=== PATIENT | male | born 1985 | race Caucasian/White ===

== ENCOUNTER 2020-06-04 17:48 | Inpatient (IN) | payer MEDICAID ==
[~2020-06-04] VITALS: Ht 190.5 cm; Wt 88.0 kg
--- NOTE | 2020-06-04 18:19 | NUR ---
PTS DAD STATES PT HAS GASTROPARESIS FOR 18 MONTHS. HAS BEEN TO [facility] MANY TIMES LATELY. WAS SENT HOME FROM [facility] LAST NIGHT. PT HAS N/V. PT STATES HAVING PAIN EVERYWHERE.
[2020-06-04] MEDS ORDERED: HYDROmorphone 1 MG/ML, 1ML INJ IV ONE (18:30)
[2020-06-04] MEDS ORDERED: SODIUM CHLORIDE 0.9% 1,000ML IVBOLUS ONE ×2 (18:30→21:00)
[2020-06-04] MEDS ORDERED: ONDANSETRON 2MG/ML, 2ML IVPush ONE (18:30)
[2020-06-04] MEDS ORDERED: HYDROmorphone 1 MG/ML, 1ML INJ ONE (18:46)
[2020-06-04] MEDS ORDERED: ONDANSETRON 2MG/ML, 2ML ONE (18:46)
[2020-06-04 18:48] LABS: MEAN CORPUSCULAR HEMOGLOBIN 26.3 pg (27.5-34.5); MEAN CORPUSCULAR HGB CONC 32.4 g/dL (33.2-36.2); MEAN PLATELET VOLUME 8.9 fL (7.4-10.4); PLATELET COUNT 555 x10^3/uL (130-400); RED BLOOD COUNT 4.85 x10^6/uL (4.38-5.82); RED CELL DISTRIBUTION WIDTH 15.9 % (9.4-14.8)
[2020-06-04 19:00] LABS: ALANINE AMINOTRANSFERASE 23 U/L (12-78); ANION GAP 17 mmol/L (5-15); CALCIUM 8.4 mg/dL (8.5-10.1); CHLORIDE 101 mmol/L (98-107)
[2020-06-04 19:03] LABS: ALKALINE PHOSPHATASE 122 U/L (45-117); BILIRUBIN,TOTAL 0.5 mg/dL (0.2-1.0); TOTAL PROTEIN 6.3 g/dL (6.4-8.2)
[2020-06-04 19:15] LABS: MD YES
[2020-06-04 19:20] LABS: BAND#(MANUAL) 0.14 x10^3/uL; BANDS%(MANUAL) 1 % (0-7); LYMPH#(MANUAL) 2.43 x10^3/uL (1-3.4); LYMPHS% (MANUAL) 18 % (22-44); METAMYELOCYTES# (MANUAL) 0.14 x10^3/uL (0-0); METAMYELOCYTES% (MANUAL) 1 % (0-1); MONOS#(MANUAL) 0.41 x10^3/uL (0.3-2.7); MONOS% (MANUAL) 3 % (2-9); MYELOCYTES# (MANUAL) 0.14 x10^3/uL (0-0); MYELOCYTES% (MANUAL) 1 % (0-0); SEG#(MANUAL) 10.26 x10^3/uL (1.8-6.8); SEGS% (MANUAL) 76 % (42-75)
[2020-06-04 19:25] LABS: ANISOCYTOSIS 1+
[2020-06-04 19:26] LABS: OVALOCYTES 1+
[2020-06-04 19:27] LABS: <PLATELET ESTIMATE> INCREASED
[2020-06-04] MEDS ORDERED: OMNIPAQUE 350 MG/ML, 100ML BOTTLE ONE (19:47)
--- NOTE | 2020-06-04 20:07 | NUR ---
PT OFF UNIT IN IMAGING
--- NOTE | 2020-06-04 20:25 | NUR ---
PT BACK FROM IMAGING, RECONNECTED TO MONITORS. LYING IN BED.
[2020-06-04] MEDS ORDERED: METOCLOPRAMIDE 5 MG/ML, 2ML IVPush ONE (21:00)
[2020-06-04] MEDS ORDERED: METOCLOPRAMIDE 5 MG/ML, 2ML ONE (21:11)
[2020-06-04] MEDS ORDERED: ONDA4TAB7 PO (21:30)
[2020-06-04] MEDS ORDERED: INSU100V11 SC (21:32)
--- NOTE | 2020-06-04 21:32 | NUR ---
GAVE REPORT TO KOMAL STONER
[2020-06-04] MEDS ORDERED: INSULIN GLARGINE 100 UNITS/ML, PEN SQ-INSULIN SCH (22:00)
[2020-06-04] MEDS ORDERED: GABAPENTIN 300 MG CAPSULE PO PRN (22:00)
[2020-06-04] MEDS ORDERED: hydrALAzine 20 MG/ML, 1ML IVPush PRN (22:00)
[2020-06-04] MEDS ORDERED: METOCLOPRAMIDE 5 MG/ML, 2ML IVPush PRN (22:00)
[2020-06-04] MEDS ORDERED: LACTATED RINGERS 1,000 ML IV SCH (22:00)
[2020-06-04] MEDS ORDERED: MELATONIN 5 MG TABLET PO PRN (22:00)
[2020-06-04] MEDS: morphine SULFATE 10 MG/ML, 1ML IVPush PRN (23:53)
[2020-06-05] MEDS: morphine SULFATE 10 MG/ML, 1ML IVPush PRN ×5 (00:13→23:42)
[2020-06-05 00:49] VITALS: BP 123/76
[2020-06-05] MEDS: ONDANSETRON 2MG/ML, 2ML IVPush PRN ×3 (02:29→19:55)
[2020-06-05 04:46] LABS: BASOPHILS % (AUTO) 0 % (0-1); EOSINOPHILS % (AUTO) 0 % (1-7); LYMPHOCYTES % (AUTO) 9 % (22-44); MEAN CORPUSCULAR HEMOGLOBIN 27.3 pg (27.5-34.5); MEAN CORPUSCULAR HGB CONC 32.8 g/dL (33.2-36.2); MEAN PLATELET VOLUME 9.4 fL (7.4-10.4); MONOCYTES % (AUTO) 5 % (2-9); NEUTROPHILS % (AUTO) 86 % (42-75); PLATELET COUNT 407 x10^3/uL (130-400); RED BLOOD COUNT 3.82 x10^6/uL (4.38-5.82)
[2020-06-05 04:49] LABS: MD NO
[2020-06-05 04:56] LABS: ANION GAP 25 mmol/L (5-15); CALCIUM 7.8 mg/dL (8.5-10.1); CHLORIDE 100 mmol/L (98-107)
[2020-06-05 04:58] LABS: CREATININE 1.39 mg/dL (0.7-1.3)
[2020-06-05 06:39] VITALS: BP 90/41
[2020-06-05] MEDS ORDERED: INSULIN LISPRO 100 UNITS/ML, PEN SQ-INSULIN SCH (07:00)
[2020-06-05] MEDS ORDERED: ENALAPRILAT 1.25 MG/ML, 2ML IVPush PRN (07:00)
[2020-06-05] MEDS ORDERED: LABETALOL 5MG/ML, 20ML IVPush PRN (07:00)
[2020-06-05] MEDS: SODIUM CHLORIDE 0.9% 1,000 ML IV SCH ×4 (07:04→22:42)
[2020-06-05] MEDS: REGULAR INSULIN 100 UNITS in SODIUM CHLORIDE 0.9% 99 ML IV PRN ×2 (07:06→14:48)
[2020-06-05] MEDS: D5%-0.45NACL+KCL 20MEQ 1,000 ML IV SCH ×3 (08:59→21:10)
[2020-06-05] MEDS: ENOXAPARIN 40 MG/0.4 ML SQ SCH (09:01)
[2020-06-05] MEDS: PANTOPRAZOLE 40MG TABLET PO SCH (09:02)
[2020-06-05] MEDS ORDERED: MORPHINE SULFATE 4 MG/ML, 1ML ONE (12:11)
[2020-06-05 12:53] LABS: MICROSCOPIC AUTO
[2020-06-05 12:58] LABS: ANION GAP 20 mmol/L (5-15); CALCIUM 7.7 mg/dL (8.5-10.1); CHLORIDE 106 mmol/L (98-107); CREATININE 1.86 mg/dL (0.7-1.3)
[2020-06-05 14:08] LABS: AMPHETAMINE SCREEN, URINE Negative (Negative); BARBITURATE SCREEN, URINE Negative (Negative); BENZODIAZEPINE SCREEN, URINE Negative (Negative); CANNABINOID SCREEN, URINE Negative (Negative); COCAINE SCREEN, URINE Negative (Negative); METHADONE SCREEN, URINE Negative (Negative); OPIATE SCREEN, URINE Positive (Negative)
[2020-06-05] MEDS ORDERED: POTASSIUM PHOSPHATE 44 MEQ in SODIUM CHLORIDE 0.9% 500 ML IV ONE (14:30)
[2020-06-05 16:32] LABS: ANION GAP 13 mmol/L (5-15); CALCIUM 7.2 mg/dL (8.5-10.1); CHLORIDE 104 mmol/L (98-107); CREATININE 1.55 mg/dL (0.7-1.3)
[2020-06-05 21:00] LABS: ANION GAP 17 mmol/L (5-15); CALCIUM 7.1 mg/dL (8.5-10.1); CHLORIDE 104 mmol/L (98-107); CREATININE 1.47 mg/dL (0.7-1.3)
[2020-06-06 00:35] LABS: ANION GAP 10 mmol/L (5-15); CALCIUM 7.1 mg/dL (8.5-10.1); CHLORIDE 105 mmol/L (98-107); CREATININE 1.35 mg/dL (0.7-1.3)
[2020-06-06] MEDS ORDERED: POTASSIUM CHLORIDE 20 MEQ in SODIUM CHLORIDE 0.9% 250 ML IV ONE (01:00)
[2020-06-06] MEDS: SODIUM CHLORIDE 0.9% 1,000 ML IV SCH ×3 (03:44→22:46)
[2020-06-06 04:30] LABS: BASOPHILS % (AUTO) 1 % (0-1); EOSINOPHILS % (AUTO) 1 % (1-7); LYMPHOCYTES % (AUTO) 37 % (22-44); MEAN CORPUSCULAR HEMOGLOBIN 27.2 pg (27.5-34.5); MEAN CORPUSCULAR HGB CONC 33.5 g/dL (33.2-36.2); MEAN PLATELET VOLUME 8.9 fL (7.4-10.4); MONOCYTES % (AUTO) 6 % (2-9); NEUTROPHILS % (AUTO) 56 % (42-75); PLATELET COUNT 340 x10^3/uL (130-400); RED BLOOD COUNT 3.55 x10^6/uL (4.38-5.82); RED CELL DISTRIBUTION WIDTH 16.1 % (9.4-14.8)
[2020-06-06 04:31] LABS: MD NO
[2020-06-06 04:32] LABS: ANION GAP 6 mmol/L (5-15); CALCIUM 7.2 mg/dL (8.5-10.1); CHLORIDE 106 mmol/L (98-107); CREATININE 1.36 mg/dL (0.7-1.3)
[2020-06-06] MEDS: D5%-0.45NACL+KCL 20MEQ 1,000 ML IV SCH (04:56)
[2020-06-06] MEDS: INSULIN LISPRO 100 UNITS/ML, PEN SQ-INSULIN SCH ×4 (06:36→20:48)
[2020-06-06] MEDS: PANTOPRAZOLE 40MG TABLET PO SCH (07:51)
[2020-06-06 07:54] LABS: ANION GAP 9 mmol/L (5-15); CALCIUM 7.7 mg/dL (8.5-10.1); CHLORIDE 104 mmol/L (98-107); CREATININE 1.29 mg/dL (0.7-1.3)
[2020-06-06] MEDS: INSULIN GLARGINE 100 UNITS/ML, PEN SQ-INSULIN SCH ×2 (08:46→20:47)
[2020-06-06] MEDS: ENOXAPARIN 40 MG/0.4 ML SQ SCH (08:47)
[2020-06-06] MEDS: ONDANSETRON 2MG/ML, 2ML IVPush PRN ×2 (11:04→22:44)
[2020-06-06 12:18] VITALS: BP 123/77
[2020-06-06 19:31] VITALS: BP 143/90
[2020-06-06 22:10] LABS: OCCULT BLOOD POSITIVE (NEGATIVE)
[2020-06-07 01:31] VITALS: BP 147/68
[2020-06-07] MEDS: ONDANSETRON 2MG/ML, 2ML IVPush PRN ×3 (04:17→21:36)
[2020-06-07 05:20] LABS: BASOPHILS % (AUTO) 1 % (0-1); EOSINOPHILS % (AUTO) 2 % (1-7); LYMPHOCYTES % (AUTO) 39 % (22-44); MEAN CORPUSCULAR HGB CONC 32.8 g/dL (33.2-36.2); MEAN PLATELET VOLUME 8.9 fL (7.4-10.4); MONOCYTES % (AUTO) 7 % (2-9); NEUTROPHILS % (AUTO) 50 % (42-75); PLATELET COUNT 341 x10^3/uL (130-400); RED BLOOD COUNT 3.74 x10^6/uL (4.38-5.82); RED CELL DISTRIBUTION WIDTH 16.4 % (9.4-14.8)
[2020-06-07 05:25] LABS: MD NO
[2020-06-07 05:38] LABS: CHLORIDE 104 mmol/L (98-107)
[2020-06-07 05:42] LABS: ANION GAP 10 mmol/L (5-15); CALCIUM 7.7 mg/dL (8.5-10.1); CREATININE 1.09 mg/dL (0.7-1.3)
[2020-06-07 06:59] VITALS: BP 144/98
[2020-06-07 07:05] VITALS: BP 135/88
[2020-06-07] MEDS: INSULIN LISPRO 100 UNITS/ML, PEN SQ-INSULIN SCH ×4 (07:30→21:00)
[2020-06-07] MEDS: PANTOPRAZOLE 40MG TABLET PO SCH (07:30)
[2020-06-07] MEDS: INSULIN GLARGINE 100 UNITS/ML, PEN SQ-INSULIN SCH ×2 (09:34→21:37)
[2020-06-07] MEDS: ENOXAPARIN 40 MG/0.4 ML SQ SCH (09:34)
[2020-06-07] MEDS: ACETAMINOPHEN 325 MG TABLET PO PRN (11:49)
[2020-06-07] MEDS: METOCLOPRAMIDE 5 MG/ML, 2ML IVPush SCH (17:42)
[2020-06-07 20:23] VITALS: BP 154/89
[2020-06-08] MEDS: METOCLOPRAMIDE 5 MG/ML, 2ML IVPush SCH ×4 (00:15→17:01)
[2020-06-08 00:29] VITALS: BP 151/107
[2020-06-08] MEDS ORDERED: MELATONIN 5 MG TABLET PO PRN (00:30)
[2020-06-08] MEDS: ACETAMINOPHEN 325 MG TABLET PO PRN ×2 (04:09→11:34)
[2020-06-08 05:04] LABS: BASOPHILS % (AUTO) 1 % (0-1); EOSINOPHILS % (AUTO) 2 % (1-7); LYMPHOCYTES % (AUTO) 38 % (22-44); MEAN CORPUSCULAR HEMOGLOBIN 26.8 pg (27.5-34.5); MEAN CORPUSCULAR HGB CONC 32.8 g/dL (33.2-36.2); MEAN PLATELET VOLUME 8.5 fL (7.4-10.4); MONOCYTES % (AUTO) 7 % (2-9); NEUTROPHILS % (AUTO) 52 % (42-75); PLATELET COUNT 304 x10^3/uL (130-400); RED BLOOD COUNT 3.64 x10^6/uL (4.38-5.82); RED CELL DISTRIBUTION WIDTH 16.4 % (9.4-14.8)
[2020-06-08 05:05] LABS: MD NO
[2020-06-08 05:18] LABS: ALBUMIN 2.2 g/dL (3.4-5.0); ANION GAP 7 mmol/L (5-15); CALCIUM 7.8 mg/dL (8.5-10.1); CHLORIDE 102 mmol/L (98-107)
[2020-06-08 05:21] LABS: ALANINE AMINOTRANSFERASE 13 U/L (12-78); ALKALINE PHOSPHATASE 86 U/L (45-117); BILIRUBIN,TOTAL 0.2 mg/dL (0.2-1.0); CREATININE 0.91 mg/dL (0.7-1.3); TOTAL PROTEIN 4.6 g/dL (6.4-8.2)
[2020-06-08] MEDS ORDERED: MAGNESIUM SULFATE PMX 2GM/50ML 50 ML IV ONE (07:00)
[2020-06-08] MEDS: INSULIN LISPRO 100 UNITS/ML, PEN SQ-INSULIN SCH ×3 (07:38→16:00)
[2020-06-08] MEDS: PANTOPRAZOLE 40MG TABLET PO SCH (07:38)
[2020-06-08 08:45] VITALS: BP 148/97
[2020-06-08] MEDS: ENOXAPARIN 40 MG/0.4 ML SQ SCH (09:18)
[2020-06-08] MEDS: INSULIN GLARGINE 100 UNITS/ML, PEN SQ-INSULIN SCH (09:19)
[2020-06-08] MEDS ORDERED: METO10TA82 PO (16:45)
[2020-06-08] MEDS ORDERED: INSU100I13 SQ-INSULIN (16:45)
== END 2020-06-08 17:50 | disposition home or self-care (01) | DRG 637 ==
LOC: ED 22:00 → 3N 23:37 → CCU 06-05 06:44 → 4NE 06-06 10:31
PROVIDERS: ADMIT Family Medicine; ATTEND Internal Medicine
DX: E10.10 Type 1 diabetes mellitus with ketoacidosis without coma (principal); G93.41 Metabolic encephalopathy; N17.0 Acute kidney failure with tubular necrosis; D64.9 Anemia, unspecified; D72.828 Other elevated white blood cell count; E10.43 Type 1 diabetes mellitus with diabetic autonomic (poly)neuropathy; E83.39 Other disorders of phosphorus metabolism; E86.0 Dehydration; G89.29 Other chronic pain; K21.9 Gastro-esophageal reflux disease without esophagitis; K31.84 Gastroparesis; R00.0 Tachycardia, unspecified; E83.42 Hypomagnesemia
CPT/HCPCS: 36415; 74177; 78264; 80048; 80053; 80307; 81001; 82272; 82962; 83036; 83605; 83690; 83735; 84100; 85025; 87081; 96361; 96374; 96375; 99285; G0378; J1170; J1650; J1815; J2405; J3480; Q9967; A9541; J2270; J2765; J3475; J7030; J7040; J7050; J7120

== ENCOUNTER 2020-07-01 02:41 | Inpatient (IN) | payer MEDICAID ==
[~2020-07-01] VITALS: Ht 190.5 cm; Wt 81.7 kg
[~2020-07-01 02:41] MED LIST: INSU100I13 SQ-INSULIN; INSU100V11 SC; METO10TA82 PO; ONDA4TAB7 PO
--- NOTE | 2020-07-01 02:52 | NUR ---
PT BLOOD SUGAR ON ARRIVAL "HIGH" WITH HOSPITAL GLUCOMETER.
[2020-07-01] MEDS ORDERED: ONDANSETRON 2MG/ML, 2ML ONE (02:57)
[2020-07-01] MEDS ORDERED: SODIUM CHLORIDE 0.9% 1,000ML IVBOLUS ONE (03:00)
[2020-07-01] MEDS ORDERED: ONDANSETRON 2MG/ML, 2ML IVPush ONE (03:00)
--- NOTE | 2020-07-01 03:06 | NUR ---
PT MEDICATED FOR N/V, FRIEND AT BEDSIDE AT THIS TIME. IV'S STARTED, LABS DRAWN AND IV FLUIDS INFUSING. AWAITING LAB RESULTS.
[2020-07-01 03:10] LABS: BASOPHILS % (AUTO) 1 % (0-1); EOSINOPHILS % (AUTO) 0 % (1-7); LYMPHOCYTES % (AUTO) 14 % (22-44); MEAN CORPUSCULAR HEMOGLOBIN 27.1 pg (27.5-34.5); MEAN PLATELET VOLUME 9.2 fL (7.4-10.4); MONOCYTES % (AUTO) 3 % (2-9); NEUTROPHILS % (AUTO) 82 % (42-75); PLATELET COUNT 518 x10^3/uL (130-400); RED CELL DISTRIBUTION WIDTH 16.6 % (9.4-14.8)
[2020-07-01 03:13] LABS: MD NO
[2020-07-01 03:14] LABS: ALBUMIN 3.2 g/dL (3.4-5.0); ANION GAP 27 mmol/L (5-15); CALCIUM 9.6 mg/dL (8.5-10.1); CHLORIDE 89 mmol/L (98-107)
[2020-07-01 03:16] LABS: ALANINE AMINOTRANSFERASE 35 U/L (12-78); BILIRUBIN,TOTAL 0.8 mg/dL (0.2-1.0); CREATININE 1.81 mg/dL (0.7-1.3)
[2020-07-01 03:20] LABS: ALKALINE PHOSPHATASE 165 U/L (45-117); TOTAL PROTEIN 7.1 g/dL (6.4-8.2); TROPONIN I < 0.015 ng/mL (0.000-0.045)
[2020-07-01] MEDS ORDERED: SODIUM CHLORIDE 0.9% 1,000 ML IV ONE (04:00)
[2020-07-01] MEDS ORDERED: REGULAR INSULIN 100 UNITS in SODIUM CHLORIDE 0.9% 99 ML IV PRN (04:00)
[2020-07-01] MEDS ORDERED: METOCLOPRAMIDE 5 MG/ML, 2ML ONE (04:00)
[2020-07-01] MEDS ORDERED: SODIUM CHLORIDE 0.9% 1,000 ML IV SCH (04:00)
[2020-07-01] MEDS ORDERED: PROMETHAZINE 25 MG/ML, 1ML IM PRN (04:00)
[2020-07-01] MEDS ORDERED: LACTATED RINGERS 1,000 ML IVBOLUS ONE (04:00)
[2020-07-01] MEDS ORDERED: METOCLOPRAMIDE 5 MG/ML, 2ML IVPush ONE (04:00)
[2020-07-01] MEDS ORDERED: ONDANSETRON ODT 4 MG PO PRN (04:00)
--- NOTE | 2020-07-01 04:29 | NUR ---
HOSPITALIST AT BEDSIDE FOR ADMIT EVAL.
[2020-07-01 04:31] LABS: ACETONE, SERUM Large (80mg/dL) (Negative)
--- NOTE | 2020-07-01 04:53 | NUR ---
1L NS, 2L LR infused. Blood Glucose reading "HIGH" on hospital glucometer. Pt A&O to self and date at this time.
[2020-07-01 05:24] LABS: MICROSCOPIC INDICATED
[2020-07-01 05:42] LABS: AMPHETAMINE SCREEN, URINE Negative (Negative); BARBITURATE SCREEN, URINE Negative (Negative); BENZODIAZEPINE SCREEN, URINE Negative (Negative); CANNABINOID SCREEN, URINE Negative (Negative); COCAINE SCREEN, URINE Negative (Negative); METHADONE SCREEN, URINE Negative (Negative); OPIATE SCREEN, URINE Negative (Negative)
[2020-07-01 05:49] LABS: ANION GAP 26 mmol/L (5-15); CALCIUM 8.6 mg/dL (8.5-10.1); CHLORIDE 96 mmol/L (98-107); CREATININE 1.84 mg/dL (0.7-1.3)
[2020-07-01] MEDS: HEPARIN 5,000 UNITS/ML, 1ML SQ SCH ×3 (05:54→21:07)
[2020-07-01] MEDS: D5%-0.45NACL+KCL 20MEQ 1,000 ML IV SCH ×2 (08:00→10:18)
[2020-07-01] MEDS: ONDANSETRON 2MG/ML, 2ML IVPush PRN ×2 (08:54→15:07)
[2020-07-01] MEDS: METOCLOPRAMIDE 5 MG/ML, 2ML IVPush SCH ×3 (09:26→21:08)
[2020-07-01] MEDS: FAMOTIDINE 20 MG/2 ML IVPush SCH ×2 (09:26→21:07)
[2020-07-01] MEDS: ACETAMINOPHEN 325 MG TABLET PO PRN ×2 (09:41→15:12)
[2020-07-01 10:26] LABS: ANION GAP 10 mmol/L (5-15); CALCIUM 8.6 mg/dL (8.5-10.1); CHLORIDE 104 mmol/L (98-107); CREATININE 1.61 mg/dL (0.7-1.3)
[2020-07-01] MEDS: INSULIN LISPRO 100 UNITS/ML, PEN SQ-INSULIN SCH ×3 (11:00→21:17)
[2020-07-01] MEDS: POTASSIUM CHLORIDE 20 MEQ in LACTATED RINGERS 1,000 ML IV SCH ×2 (11:38→22:11)
[2020-07-01] MEDS: INSULIN GLARGINE 100 UNITS/ML, PEN SQ-INSULIN SCH ×2 (11:39→21:19)
[2020-07-01 15:36] LABS: ANION GAP 14 mmol/L (5-15); CALCIUM 8.4 mg/dL (8.5-10.1); CHLORIDE 97 mmol/L (98-107); CREATININE 1.35 mg/dL (0.7-1.3)
[2020-07-01] MEDS ORDERED: PANTOPRAZOLE 40 MG IV IVPush SCH (16:30)
[2020-07-01] MEDS: morphine SULFATE 10 MG/ML, 1ML IVPush PRN ×2 (16:41→22:12)
[2020-07-02] MEDS: HEPARIN 5,000 UNITS/ML, 1ML SQ SCH ×3 (03:43→20:58)
[2020-07-02] MEDS: METOCLOPRAMIDE 5 MG/ML, 2ML IVPush SCH ×4 (03:43→20:57)
[2020-07-02 04:40] LABS: BASOPHILS % (AUTO) 1 % (0-1); EOSINOPHILS % (AUTO) 2 % (1-7); LYMPHOCYTES % (AUTO) 39 % (22-44); MEAN CORPUSCULAR HEMOGLOBIN 26.9 pg (27.5-34.5); MEAN CORPUSCULAR HGB CONC 33.3 g/dL (33.2-36.2); MEAN PLATELET VOLUME 8.2 fL (7.4-10.4); MONOCYTES % (AUTO) 7 % (2-9); NEUTROPHILS % (AUTO) 52 % (42-75); PLATELET COUNT 479 x10^3/uL (130-400); RED BLOOD COUNT 4.03 x10^6/uL (4.38-5.82); RED CELL DISTRIBUTION WIDTH 15.9 % (9.4-14.8)
[2020-07-02 04:41] LABS: MD NO
[2020-07-02 04:49] LABS: ANION GAP 12 mmol/L (5-15); CALCIUM 8.6 mg/dL (8.5-10.1); CHLORIDE 98 mmol/L (98-107); CREATININE 1.18 mg/dL (0.7-1.3)
[2020-07-02] MEDS ORDERED: POTASSIUM CHLORIDE 20 MEQ TAB.ER.PRT PO ONE (06:30)
[2020-07-02] MEDS: INSULIN LISPRO 100 UNITS/ML, PEN SQ-INSULIN SCH ×5 (07:00→21:00)
[2020-07-02] MEDS: INSULIN GLARGINE 100 UNITS/ML, PEN SQ-INSULIN SCH (08:46)
[2020-07-02] MEDS ORDERED: OMNIPAQUE 350 MG/ML, 100ML BOTTLE ONE (09:44)
[2020-07-02] MEDS: PANTOPRAZOLE 40MG TABLET PO SCH (10:00)
[2020-07-02] MEDS: ACETAMINOPHEN 325 MG TABLET PO PRN (13:25)
[2020-07-02 15:08] VITALS: BP 136/87
[2020-07-02 19:42] VITALS: BP 129/82
[2020-07-02] MEDS ORDERED: INSULIN GLARGINE 100 UNITS/ML, PEN SQ-INSULIN SCH (21:00)
[2020-07-03 02:15] VITALS: BP 112/78
[2020-07-03] MEDS ORDERED: INSULIN LISPRO 100 UNITS/ML, PEN SQ-INSULIN ONE (02:30)
[2020-07-03] MEDS: HEPARIN 5,000 UNITS/ML, 1ML SQ SCH ×2 (05:10→12:55)
[2020-07-03] MEDS: PANTOPRAZOLE 40MG TABLET PO SCH (05:10)
[2020-07-03] MEDS: METOCLOPRAMIDE 5 MG/ML, 2ML IVPush SCH (05:10)
[2020-07-03 06:17] LABS: BASOPHILS % (AUTO) 1 % (0-1); EOSINOPHILS % (AUTO) 3 % (1-7); LYMPHOCYTES % (AUTO) 46 % (22-44); MEAN CORPUSCULAR HGB CONC 32.9 g/dL (33.2-36.2); MEAN PLATELET VOLUME 8.7 fL (7.4-10.4); MONOCYTES % (AUTO) 9 % (2-9); NEUTROPHILS % (AUTO) 41 % (42-75); PLATELET COUNT 389 x10^3/uL (130-400); RED BLOOD COUNT 3.65 x10^6/uL (4.38-5.82); RED CELL DISTRIBUTION WIDTH 16.3 % (9.4-14.8)
[2020-07-03 06:19] LABS: ANION GAP 8 mmol/L (5-15); CALCIUM 8.3 mg/dL (8.5-10.1); CHLORIDE 103 mmol/L (98-107)
[2020-07-03 06:21] LABS: CREATININE 1.25 mg/dL (0.7-1.3)
[2020-07-03 06:42] VITALS: BP 149/101
[2020-07-03 06:53] LABS: MD SCAN
[2020-07-03] MEDS: INSULIN LISPRO 100 UNITS/ML, PEN SQ-INSULIN SCH ×3 (08:30→12:56)
[2020-07-03] MEDS: METOCLOPRAMIDE 10MG TABLET PO SCH ×2 (08:32→12:55)
[2020-07-03] MEDS ORDERED: INSULIN GLARGINE 100 UNITS/ML, PEN SQ-INSULIN SCH ×2 (09:00)
[2020-07-03] MEDS ORDERED: IRON SUCROSE COMPLEX 100MG/5ML IV SCH (09:00)
[2020-07-03] MEDS ORDERED: INSULIN LISPRO 100 UNITS/ML, PEN SQ-INSULIN SCH (11:00)
[2020-07-03] MEDS ORDERED: ONDA4TAB7 PO (12:08)
[2020-07-03] MEDS ORDERED: INSU100I11 SQ-INSULIN (12:08)
[2020-07-03 12:17] VITALS: BP_SYST 144; BP_SYST 97; BP_DIAS 56; BP_DIAS 99
== END 2020-07-03 14:40 | disposition home or self-care (01) | DRG 637 ==
LOC: ED 03:11 → EDIP 04:00 → CCU 05:40 → 4WST 07-02 09:45 → DCLOUNGE 07-03 14:33
PROVIDERS: ATTEND Hospitalist
DX: E10.10 Type 1 diabetes mellitus with ketoacidosis without coma (principal); G93.41 Metabolic encephalopathy; E87.1 Hypo-osmolality and hyponatremia; N17.9 Acute kidney failure, unspecified; D50.9 Iron deficiency anemia, unspecified; E10.43 Type 1 diabetes mellitus with diabetic autonomic (poly)neuropathy; E86.0 Dehydration; E87.5 Hyperkalemia; K31.84 Gastroparesis; K40.90 Unilateral inguinal hernia, without obstruction or gangrene, not specified as recurrent; R00.0 Tachycardia, unspecified; Z79.4 Long term (current) use of insulin
CPT/HCPCS: 71045; 74177; 76705; 80048; 80053; 80307; 81001; 82010; 82607; 82728; 82803; 82962; 83036; 83540; 83550; 83605; 83690; 83735; 84100; 84145; 84484; 85025; 87081; 93005; 96361; 96374; 96375; G0378; J1644; J1756; J1815; J2405; J2550; J3480; Q9967; C9113; J2270; J2765; J7030; J7120; Q0181

== ENCOUNTER 2020-08-02 15:27 | Inpatient (IN) | payer MEDICAID ==
[~2020-08-02] VITALS: Ht 190.5 cm; Wt 87.2 kg
[~2020-08-02 15:27] MED LIST changes: +INSU100I11 SQ-INSULIN
[2020-08-02 16:26] LABS: PH, VENOUS 7.453 pH (7.320-7.420)
[2020-08-02 16:38] LABS: ALANINE AMINOTRANSFERASE 30 U/L (12-78); ALBUMIN 3.3 g/dL (3.4-5.0); ANION GAP 9 mmol/L (5-15); CHLORIDE 101 mmol/L (98-107); CREATININE 1.36 mg/dL (0.7-1.3)
[2020-08-02 16:45] LABS: BASOPHILS % (AUTO) 1 % (0-1); EOSINOPHILS % (AUTO) 1 % (1-7); LYMPHOCYTES % (AUTO) 11 % (22-44); MEAN CORPUSCULAR HGB CONC 33.1 g/dL (33.2-36.2); MEAN PLATELET VOLUME 9.2 fL (7.4-10.4); MONOCYTES % (AUTO) 5 % (2-9); NEUTROPHILS % (AUTO) 83 % (42-75); PLATELET COUNT 401 x10^3/uL (130-400); RED BLOOD COUNT 4.63 x10^6/uL (4.38-5.82); RED CELL DISTRIBUTION WIDTH 15.4 % (9.4-14.8)
[2020-08-02 16:46] LABS: ALKALINE PHOSPHATASE 158 U/L (45-117); BILIRUBIN,TOTAL 0.7 mg/dL (0.2-1.0); MD NO
[2020-08-02 16:50] LABS: ACETONE, SERUM Small (20mg/dL) (Negative)
--- NOTE | 2020-08-02 17:38 | NUR ---
PT TO RM FROM LOBBY
--- NOTE | 2020-08-02 18:27 | NUR ---
PT C/O OR RIGHT FOOT PAIN. FOOT NOTED TO HAVE DIME SIZE ULCER ON BALL OF FOOT. NO SWELLING NOTED. CMS NOTED ON RIGHT FOOT. PT APPEARS TO BE SOMNOLENT, AWAKES TO VERBAL STIMULUS. A&OX4. ATTACHED TO CARD/SP02/BP MONITORS. VSS WITH SLIGHTLY ELEVATED HR. BED IN LOW POSITION. CALL LIGHT WITHIN REACH. WILL CONTINUE TO MONITOR.
[2020-08-02 18:42] LABS: HCT (SEDRATE) 37.8 % (39.2-51.8)
--- NOTE | 2020-08-02 18:43 | NUR ---
ERMD AT BEDSIDE FOR EVALUATION.
[2020-08-02] MEDS ORDERED: VANCOMYCIN PER PHARMACY MC ONE (19:00)
[2020-08-02] MEDS ORDERED: PLEASE ENTER HEIGHT AND WEIGHT MC SCH (19:00)
[2020-08-02] MEDS ORDERED: PIPERACILLIN/TAZO 3.375 GM in DEXTROSE 5% 50 ML IVPB ONE (19:00)
[2020-08-02] MEDS ORDERED: SODIUM CHLORIDE 0.9% 1,000ML IVBOLUS ONE (19:00)
--- NOTE | 2020-08-02 19:25 | NUR ---
REPORT FROM PANFILO STONER, PT CARE TRANSFERRED AT THIS TIME. PT MOVED TO WEIGHTED [place] IN ORDER TO OBTAIN AN ACCURATE WEIGHT. PT PROVIDED URINAL. NAD. DENIES ADDITIONAL NEEDS, BED IN LOWEST, RAILS ENGAGED, CALL LIGHT ON LAP. WCTM.
[2020-08-02] MEDS ORDERED: VANCOMYCIN 2,000 MG in SODIUM CHLORIDE 0.9% 500 ML IV ONE (20:00)
[2020-08-02] MEDS ORDERED: SODIUM CHLORIDE FLUSH 10ML SYR IVF PRN (20:30)
[2020-08-02] MEDS ORDERED: PHARMACY MAY ADJ FOR RENAL FX MC PRN (21:00)
[2020-08-02] MEDS ORDERED: SODIUM CHLORIDE 0.9% 1,000ML IV ONE (21:00)
[2020-08-02] MEDS ORDERED: VANCOMYCIN PER PHARMACY MC PRN (21:00)
[2020-08-02] MEDS ORDERED: SODIUM CHLORIDE 0.9% 1,000 ML IV SCH (21:00)
[2020-08-02] MEDS ORDERED: METOCLOPRAMIDE 10MG TABLET PO PRN (21:00)
[2020-08-02 22:00] VITALS: BP 161/107
[2020-08-02] MEDS: ONDANSETRON 2MG/ML, 2ML IVPush PRN (22:23)
[2020-08-02] MEDS: HEPARIN 5,000 UNITS/ML, 1ML SQ SCH (22:29)
[2020-08-02] MEDS ORDERED: PHARMACOKINETIC MONITORING MC PRN (22:30)
[2020-08-02] MEDS: INSULIN LISPRO 100 UNITS/ML, PEN SQ-INSULIN SCH (22:44)
[2020-08-02] MEDS: INSULIN GLARGINE 100 UNITS/ML, PEN SQ-INSULIN SCH (22:44)
[2020-08-02] MEDS: morphine SULFATE 10 MG/ML, 1ML IVPush PRN (22:45)
[2020-08-02] MEDS: AMPICILLIN/SULBACTAM 3 GM in SODIUM CHLORIDE 0.9% 100 ML IV SCH (23:39)
[2020-08-03 02:00] VITALS: BP 130/64
[2020-08-03 05:45] LABS: BASOPHILS % (AUTO) 1 % (0-1); EOSINOPHILS % (AUTO) 0 % (1-7); LYMPHOCYTES % (AUTO) 20 % (22-44); MEAN CORPUSCULAR HEMOGLOBIN 27.5 pg (27.5-34.5); MEAN CORPUSCULAR HGB CONC 33.2 g/dL (33.2-36.2); MEAN PLATELET VOLUME 9.5 fL (7.4-10.4); MONOCYTES % (AUTO) 7 % (2-9); NEUTROPHILS % (AUTO) 72 % (42-75); PLATELET COUNT 295 x10^3/uL (130-400); RED BLOOD COUNT 3.66 x10^6/uL (4.38-5.82); RED CELL DISTRIBUTION WIDTH 15.6 % (9.4-14.8)
[2020-08-03 05:51] LABS: MD NO
[2020-08-03] MEDS: AMPICILLIN/SULBACTAM 3 GM in SODIUM CHLORIDE 0.9% 100 ML IV SCH ×4 (06:05→23:54)
[2020-08-03] MEDS: HEPARIN 5,000 UNITS/ML, 1ML SQ SCH ×3 (06:07→22:57)
[2020-08-03 06:09] LABS: CHLORIDE 107 mmol/L (98-107)
[2020-08-03 06:14] LABS: ANION GAP 5 mmol/L (5-15); CALCIUM 7.8 mg/dL (8.5-10.1); CREATININE 0.96 mg/dL (0.7-1.3)
[2020-08-03 06:45] VITALS: BP 126/82
[2020-08-03] MEDS: VANCOMYCIN 1,600 MG in SODIUM CHLORIDE 0.9% 250 ML IV SCH ×2 (07:57→21:11)
[2020-08-03] MEDS: ONDANSETRON 2MG/ML, 2ML IVPush PRN (08:10)
[2020-08-03] MEDS: morphine SULFATE 10 MG/ML, 1ML IVPush PRN (08:11)
[2020-08-03] MEDS: INSULIN LISPRO 100 UNITS/ML, PEN SQ-INSULIN SCH ×4 (08:12→21:24)
[2020-08-03] MEDS: INSULIN GLARGINE 100 UNITS/ML, PEN SQ-INSULIN SCH ×2 (10:28→21:24)
[2020-08-03 13:28] VITALS: BP 153/98
[2020-08-03] MEDS: ACETAMINOPHEN 325 MG TABLET PO PRN (18:15)
[2020-08-03 19:06] VITALS: BP 148/88
[2020-08-04 00:17] VITALS: BP 143/94
[2020-08-04] MEDS: ACETAMINOPHEN 325 MG TABLET PO PRN (04:32)
[2020-08-04] MEDS: AMPICILLIN/SULBACTAM 3 GM in SODIUM CHLORIDE 0.9% 100 ML IV SCH ×3 (05:46→18:22)
[2020-08-04] MEDS: HEPARIN 5,000 UNITS/ML, 1ML SQ SCH ×3 (05:47→22:47)
[2020-08-04 06:53] LABS: BASOPHILS % (AUTO) 1 % (0-1); EOSINOPHILS % (AUTO) 2 % (1-7); LYMPHOCYTES % (AUTO) 21 % (22-44); MEAN CORPUSCULAR HEMOGLOBIN 27.3 pg (27.5-34.5); MEAN CORPUSCULAR HGB CONC 32.6 g/dL (33.2-36.2); MEAN PLATELET VOLUME 9.1 fL (7.4-10.4); MONOCYTES % (AUTO) 8 % (2-9); NEUTROPHILS % (AUTO) 69 % (42-75); PLATELET COUNT 248 x10^3/uL (130-400); RED BLOOD COUNT 3.62 x10^6/uL (4.38-5.82); RED CELL DISTRIBUTION WIDTH 15.5 % (9.4-14.8)
[2020-08-04 07:00] LABS: MD NO
[2020-08-04 07:04] LABS: ANION GAP 6 mmol/L (5-15); CALCIUM 7.9 mg/dL (8.5-10.1); CHLORIDE 103 mmol/L (98-107); CREATININE 0.71 mg/dL (0.7-1.3)
[2020-08-04 07:06] VITALS: BP 143/94
[2020-08-04] MEDS: VANCOMYCIN 1,600 MG in SODIUM CHLORIDE 0.9% 250 ML IV SCH (08:26)
[2020-08-04] MEDS: INSULIN LISPRO 100 UNITS/ML, PEN SQ-INSULIN SCH ×4 (08:28→20:55)
[2020-08-04] MEDS ORDERED: INSULIN GLARGINE 100 UNITS/ML, PEN SQ-INSULIN SCH (09:00)
[2020-08-04 12:23] VITALS: BP 138/92
[2020-08-04] MEDS ORDERED: VANCOMYCIN 1,700 MG in SODIUM CHLORIDE 0.9% 250 ML IV ONE (16:00)
[2020-08-04] MEDS: morphine SULFATE 10 MG/ML, 1ML IVPush PRN (18:18)
[2020-08-04] MEDS: ONDANSETRON 2MG/ML, 2ML IVPush PRN (18:18)
[2020-08-04] MEDS: INSULIN GLARGINE 100 UNITS/ML, PEN SQ-INSULIN SCH (20:55)
[2020-08-04 20:56] VITALS: BP 119/77
[2020-08-04] MEDS ORDERED: ATORVASTATIN 40 MG TABLET PO SCH (21:00)
[2020-08-05] MEDS: AMPICILLIN/SULBACTAM 3 GM in SODIUM CHLORIDE 0.9% 100 ML IV SCH ×3 (00:06→11:52)
[2020-08-05 00:50] VITALS: BP 150/98
[2020-08-05] MEDS: VANCOMYCIN 1,700 MG in SODIUM CHLORIDE 0.9% 250 ML IV SCH ×2 (03:57→16:20)
[2020-08-05] MEDS: HEPARIN 5,000 UNITS/ML, 1ML SQ SCH ×2 (05:39→14:24)
[2020-08-05 07:23] VITALS: BP 149/91
[2020-08-05] MEDS: LACTOBACILLUS CHEW TABLET PO SCH ×3 (07:53→19:52)
[2020-08-05] MEDS: INSULIN GLARGINE 100 UNITS/ML, PEN SQ-INSULIN SCH ×2 (07:54→20:16)
[2020-08-05] MEDS: INSULIN LISPRO 100 UNITS/ML, PEN SQ-INSULIN SCH ×4 (07:55→20:16)
[2020-08-05] MEDS ORDERED: VITAMIN E 400 UNITS CAPSULE PO SCH (09:00)
[2020-08-05] MEDS ORDERED: ASPIRIN 81 MG TABLET CHEW PO SCH (09:00)
[2020-08-05 12:21] VITALS: BP 149/106
[2020-08-05] MEDS: CEFAZOLIN 2,000 MG in SODIUM CHLORIDE 0.9% 50 ML IV SCH (19:51)
[2020-08-05] MEDS: ENOXAPARIN 40 MG/0.4 ML SQ SCH (19:52)
[2020-08-05 20:22] VITALS: BP 168/126
[2020-08-05] MEDS: LABETALOL 5MG/ML, 20ML IVPush PRN ×2 (20:35→22:57)
[2020-08-05 22:44] VITALS: BP_SYST 178; BP_SYST 179; BP_DIAS 125; BP_DIAS 126
[2020-08-05] MEDS: ONDANSETRON 2MG/ML, 2ML IVPush PRN (23:58)
[2020-08-06] VITALS (13 sets, daily range): BP systolic 161–196; BP diastolic 81–120
[2020-08-06] MEDS: morphine SULFATE 10 MG/ML, 1ML IVPush PRN ×3 (02:01→17:04)
[2020-08-06] MEDS: LABETALOL 5MG/ML, 20ML IVPush PRN ×4 (03:30→16:56)
[2020-08-06] MEDS: CEFAZOLIN 2,000 MG in SODIUM CHLORIDE 0.9% 50 ML IV SCH ×2 (04:38→11:17)
[2020-08-06] MEDS ORDERED: hydrALAzine 20 MG/ML, 1ML IV ONE (05:00)
[2020-08-06] MEDS: ONDANSETRON 2MG/ML, 2ML IVPush PRN ×2 (05:27→11:21)
[2020-08-06] MEDS: INSULIN LISPRO 100 UNITS/ML, PEN SQ-INSULIN SCH ×4 (08:06→20:07)
[2020-08-06] MEDS: INSULIN GLARGINE 100 UNITS/ML, PEN SQ-INSULIN SCH ×2 (08:06→20:06)
[2020-08-06 08:09] LABS: BASOPHILS % (AUTO) 1 % (0-1); EOSINOPHILS % (AUTO) 1 % (1-7); LYMPHOCYTES % (AUTO) 17 % (22-44); MEAN CORPUSCULAR HEMOGLOBIN 27.5 pg (27.5-34.5); MEAN CORPUSCULAR HGB CONC 33.3 g/dL (33.2-36.2); MEAN PLATELET VOLUME 8.6 fL (7.4-10.4); MONOCYTES % (AUTO) 9 % (2-9); NEUTROPHILS % (AUTO) 72 % (42-75); PLATELET COUNT 343 x10^3/uL (130-400); RED BLOOD COUNT 3.52 x10^6/uL (4.38-5.82); RED CELL DISTRIBUTION WIDTH 15.1 % (9.4-14.8)
[2020-08-06 08:10] LABS: MD NO
[2020-08-06 08:20] LABS: ANION GAP 5 mmol/L (5-15); CALCIUM 9.1 mg/dL (8.5-10.1); CHLORIDE 104 mmol/L (98-107); CREATININE 1.18 mg/dL (0.7-1.3)
[2020-08-06] MEDS: LACTOBACILLUS CHEW TABLET PO SCH ×3 (08:56→20:07)
[2020-08-06] MEDS: ACETAMINOPHEN 325 MG TABLET PO PRN (09:01)
[2020-08-06] MEDS: PROMETHAZINE 25 MG/ML, 1ML IM PRN ×2 (09:02→16:56)
[2020-08-06] MEDS: PIPERACILLIN/TAZO 3.375 GM in DEXTROSE 5% 50 ML IV SCH ×2 (15:13→20:42)
[2020-08-06] MEDS: ENOXAPARIN 40 MG/0.4 ML SQ SCH (20:07)
[2020-08-06] MEDS: LINEZOLID 600 MG TABLET PO SCH (20:08)
[2020-08-06] MEDS ORDERED: OMNIPAQUE 350 MG/ML, 100ML BOTTLE ONE (21:42)
[2020-08-07 02:41] VITALS: BP_SYST 186; BP_SYST 189; BP_DIAS 122; BP_DIAS 131
[2020-08-07] MEDS ORDERED: ENALAPRILAT 1.25 MG/ML, 1ML ONE ×2 (02:46→09:12)
[2020-08-07] MEDS: PIPERACILLIN/TAZO 3.375 GM in DEXTROSE 5% 50 ML IV SCH ×4 (02:54→20:29)
[2020-08-07] MEDS: HYDROcodone/APAP 5/325 TABLET PO PRN ×2 (02:55→09:15)
[2020-08-07] MEDS: ENALAPRILAT 1.25 MG/ML, 2ML IV PRN ×2 (02:57→09:16)
[2020-08-07 03:20] VITALS: BP 163/111
[2020-08-07 05:21] LABS: BASOPHILS % (AUTO) 1 % (0-1); EOSINOPHILS % (AUTO) 2 % (1-7); LYMPHOCYTES % (AUTO) 26 % (22-44); MEAN CORPUSCULAR HEMOGLOBIN 27.9 pg (27.5-34.5); MEAN CORPUSCULAR HGB CONC 33.8 g/dL (33.2-36.2); MEAN PLATELET VOLUME 8.4 fL (7.4-10.4); MONOCYTES % (AUTO) 10 % (2-9); NEUTROPHILS % (AUTO) 61 % (42-75); PLATELET COUNT 347 x10^3/uL (130-400); RED BLOOD COUNT 3.51 x10^6/uL (4.38-5.82); RED CELL DISTRIBUTION WIDTH 15.3 % (9.4-14.8)
[2020-08-07 05:28] LABS: MD NO
[2020-08-07 05:29] LABS: ALANINE AMINOTRANSFERASE 15 U/L (12-78); ALBUMIN 2.2 g/dL (3.4-5.0); ANION GAP 6 mmol/L (5-15); CALCIUM 8.8 mg/dL (8.5-10.1); CHLORIDE 105 mmol/L (98-107); CREATININE 1.09 mg/dL (0.7-1.3)
[2020-08-07 05:31] LABS: ALKALINE PHOSPHATASE 112 U/L (45-117); BILIRUBIN,TOTAL 0.3 mg/dL (0.2-1.0); TOTAL PROTEIN 5.8 g/dL (6.4-8.2)
[2020-08-07 08:21] VITALS: BP 171/115
[2020-08-07] MEDS: INSULIN LISPRO 100 UNITS/ML, PEN SQ-INSULIN SCH ×4 (08:34→20:27)
[2020-08-07] MEDS: INSULIN GLARGINE 100 UNITS/ML, PEN SQ-INSULIN SCH ×2 (08:37→20:28)
[2020-08-07 09:03] LABS: TROPONIN I < 0.015 ng/mL (0.000-0.045)
[2020-08-07] MEDS: LACTOBACILLUS CHEW TABLET PO SCH ×3 (09:15→20:26)
[2020-08-07] MEDS: LINEZOLID 600 MG TABLET PO SCH ×2 (09:15→20:26)
[2020-08-07 12:01] VITALS: BP 161/97
[2020-08-07] MEDS: morphine SULFATE 10 MG/ML, 1ML IVPush PRN (12:03)
[2020-08-07] MEDS ORDERED: INSULIN GLARGINE 100 UNITS/ML, PEN SQ-INSULIN ONE (13:00)
[2020-08-07 17:12] LABS: AMPHETAMINE SCREEN, URINE Negative (Negative); BARBITURATE SCREEN, URINE Negative (Negative); BENZODIAZEPINE SCREEN, URINE Negative (Negative); CANNABINOID SCREEN, URINE Negative (Negative); COCAINE SCREEN, URINE Negative (Negative); METHADONE SCREEN, URINE Negative (Negative); OPIATE SCREEN, URINE Positive (Negative)
[2020-08-07 18:28] VITALS: BP 144/93
[2020-08-07] MEDS: ENOXAPARIN 40 MG/0.4 ML SQ SCH (20:28)
[2020-08-08] VITALS (8 sets, daily range): BP systolic 151–207; BP diastolic 96–132
[2020-08-08] MEDS: PIPERACILLIN/TAZO 3.375 GM in DEXTROSE 5% 50 ML IV SCH ×6 (03:05→20:35)
[2020-08-08 05:20] LABS: BASOPHILS % (AUTO) 1 % (0-1); EOSINOPHILS % (AUTO) 3 % (1-7); LYMPHOCYTES % (AUTO) 28 % (22-44); MEAN CORPUSCULAR HEMOGLOBIN 27.2 pg (27.5-34.5); MEAN CORPUSCULAR HGB CONC 32.7 g/dL (33.2-36.2); MEAN PLATELET VOLUME 8.1 fL (7.4-10.4); MONOCYTES % (AUTO) 7 % (2-9); NEUTROPHILS % (AUTO) 61 % (42-75); PLATELET COUNT 432 x10^3/uL (130-400); RED CELL DISTRIBUTION WIDTH 15.2 % (9.4-14.8)
[2020-08-08 05:22] LABS: MD NO
[2020-08-08 05:32] LABS: ANION GAP 5 mmol/L (5-15); CALCIUM 9.1 mg/dL (8.5-10.1); CHLORIDE 100 mmol/L (98-107); CREATININE 1.32 mg/dL (0.7-1.3)
[2020-08-08] MEDS: INSULIN LISPRO 100 UNITS/ML, PEN SQ-INSULIN SCH ×4 (07:00→20:36)
[2020-08-08] MEDS: LINEZOLID 600 MG TABLET PO SCH (09:03)
[2020-08-08] MEDS: LACTOBACILLUS CHEW TABLET PO SCH ×3 (09:03→17:02)
[2020-08-08] MEDS: INSULIN GLARGINE 100 UNITS/ML, PEN SQ-INSULIN SCH (09:04)
[2020-08-08] MEDS: ONDANSETRON 2MG/ML, 2ML IVPush PRN ×2 (10:47→17:02)
[2020-08-08] MEDS: PROMETHAZINE 25 MG/ML, 1ML IM PRN (11:53)
[2020-08-08] MEDS: morphine SULFATE 10 MG/ML, 1ML IVPush PRN ×3 (12:39→20:35)
[2020-08-08] MEDS: LABETALOL 5MG/ML, 20ML IVPush PRN ×3 (14:28→22:36)
[2020-08-08] MEDS: METOCLOPRAMIDE 5 MG/ML, 2ML IVPush SCH ×2 (14:37→20:34)
[2020-08-08] MEDS ORDERED: ENALAPRILAT 1.25 MG/ML, 1ML ONE (14:40)
[2020-08-08] MEDS ORDERED: PANTOPRAZOLE 40 MG IV ONE (14:44)
[2020-08-08] MEDS: PANTOPRAZOLE 40 MG IV IVPush SCH (14:49)
[2020-08-08] MEDS ORDERED: LORazepam 2 MG/ML, 1ML IVPush ONE (15:00)
[2020-08-08] MEDS: ENALAPRILAT 1.25 MG/ML, 2ML IV PRN (17:03)
[2020-08-08] MEDS ORDERED: DEXTROSE 4 GM TAB.CHEW PO PRN (18:30)
[2020-08-08] MEDS ORDERED: GLUCAGON 1 MG IM PRN (18:30)
[2020-08-08] MEDS ORDERED: DEXTROSE 50%, 50ML SYRINGE IVPush PRN (18:30)
[2020-08-08] MEDS: LINEZOLID PMX 600MG/300ML 300 ML IV SCH (18:37)
[2020-08-08] MEDS: SODIUM CHLORIDE FLUSH 10ML SYR IVF SCH (20:36)
[2020-08-09 02:11] VITALS: BP 99/60
[2020-08-09] MEDS: PANTOPRAZOLE 40 MG IV IVPush SCH ×2 (02:21→15:09)
[2020-08-09] MEDS: PIPERACILLIN/TAZO 3.375 GM in DEXTROSE 5% 50 ML IV SCH ×4 (02:21→20:33)
[2020-08-09] MEDS: METOCLOPRAMIDE 5 MG/ML, 2ML IVPush SCH ×4 (02:21→20:34)
[2020-08-09] MEDS: LINEZOLID PMX 600MG/300ML 300 ML IV SCH ×2 (06:19→20:04)
[2020-08-09 07:10] LABS: BASOPHILS % (AUTO) 0 % (0-1); EOSINOPHILS % (AUTO) 0 % (1-7); LYMPHOCYTES % (AUTO) 24 % (22-44); MEAN CORPUSCULAR HEMOGLOBIN 27.4 pg (27.5-34.5); MEAN PLATELET VOLUME 7.8 fL (7.4-10.4); MONOCYTES % (AUTO) 6 % (2-9); NEUTROPHILS % (AUTO) 70 % (42-75); PLATELET COUNT 502 x10^3/uL (130-400); RED BLOOD COUNT 3.93 x10^6/uL (4.38-5.82)
[2020-08-09 07:13] LABS: MD NO
[2020-08-09 07:21] LABS: ALANINE AMINOTRANSFERASE 15 U/L (12-78); ALBUMIN 2.5 g/dL (3.4-5.0); ANION GAP 10 mmol/L (5-15); CALCIUM 8.9 mg/dL (8.5-10.1); CHLORIDE 93 mmol/L (98-107); CREATININE 1.72 mg/dL (0.7-1.3)
[2020-08-09 07:23] LABS: ALKALINE PHOSPHATASE 105 U/L (45-117); BILIRUBIN,TOTAL 0.5 mg/dL (0.2-1.0); TOTAL PROTEIN 6.4 g/dL (6.4-8.2)
[2020-08-09 08:45] VITALS: BP 139/80
[2020-08-09] MEDS: SODIUM CHLORIDE FLUSH 10ML SYR IVF SCH ×2 (09:27→20:34)
[2020-08-09] MEDS: SODIUM CHLORIDE 0.9% 1,000 ML IV SCH ×2 (10:00→20:04)
[2020-08-09] MEDS: INSULIN LISPRO 100 UNITS/ML, PEN SQ-INSULIN SCH ×4 (10:58→20:33)
[2020-08-09] MEDS: INSULIN GLARGINE 100 UNITS/ML, PEN SQ-INSULIN SCH ×2 (11:00→20:34)
[2020-08-09 13:18] VITALS: BP 136/90
[2020-08-09 20:00] VITALS: BP 154/97
[2020-08-10] VITALS (10 sets, daily range): BP systolic 132–199; BP diastolic 76–126
[2020-08-10] MEDS: PANTOPRAZOLE 40 MG IV IVPush SCH (02:51)
[2020-08-10] MEDS: SODIUM CHLORIDE 0.9% 1,000 ML IV SCH ×3 (02:52→19:42)
[2020-08-10] MEDS: METOCLOPRAMIDE 5 MG/ML, 2ML IVPush SCH ×4 (02:52→20:46)
[2020-08-10] MEDS: PIPERACILLIN/TAZO 3.375 GM in DEXTROSE 5% 50 ML IV SCH ×4 (02:52→20:54)
[2020-08-10] MEDS: LABETALOL 5MG/ML, 20ML IVPush PRN ×4 (03:09→11:28)
[2020-08-10 05:09] LABS: BASOPHILS % (AUTO) 1 % (0-1); EOSINOPHILS % (AUTO) 3 % (1-7); LYMPHOCYTES % (AUTO) 29 % (22-44); MEAN CORPUSCULAR HEMOGLOBIN 27.9 pg (27.5-34.5); MEAN CORPUSCULAR HGB CONC 33.7 g/dL (33.2-36.2); MONOCYTES % (AUTO) 7 % (2-9); NEUTROPHILS % (AUTO) 60 % (42-75); PLATELET COUNT 448 x10^3/uL (130-400); RED BLOOD COUNT 3.56 x10^6/uL (4.38-5.82); RED CELL DISTRIBUTION WIDTH 15.1 % (9.4-14.8)
[2020-08-10 05:10] LABS: MD NO
[2020-08-10 05:20] LABS: CHLORIDE 102 mmol/L (98-107)
[2020-08-10 05:30] LABS: ALANINE AMINOTRANSFERASE 18 U/L (12-78); ALBUMIN 2.3 g/dL (3.4-5.0); ALKALINE PHOSPHATASE 94 U/L (45-117); ANION GAP 6 mmol/L (5-15); BILIRUBIN,TOTAL 0.2 mg/dL (0.2-1.0); CREATININE 1.46 mg/dL (0.7-1.3); TOTAL PROTEIN 5.8 g/dL (6.4-8.2)
[2020-08-10] MEDS: LINEZOLID PMX 600MG/300ML 300 ML IV SCH ×2 (08:26→19:42)
[2020-08-10] MEDS: INSULIN GLARGINE 100 UNITS/ML, PEN SQ-INSULIN SCH ×2 (08:27→20:45)
[2020-08-10] MEDS: INSULIN LISPRO 100 UNITS/ML, PEN SQ-INSULIN SCH ×4 (08:28→20:45)
[2020-08-10] MEDS: morphine SULFATE 10 MG/ML, 1ML IVPush PRN (08:54)
[2020-08-10] MEDS: SODIUM CHLORIDE FLUSH 10ML SYR IVF SCH ×2 (09:00→20:46)
[2020-08-10] MEDS: LORazepam 2 MG/ML, 1ML IVPush PRN (10:29)
[2020-08-10] MEDS ORDERED: FENTANYL PF 250 MCG/5ML ONE (11:01)
[2020-08-10] MEDS ORDERED: MIDAZOLAM 1 MG/ML, 2ML ONE (11:01)
[2020-08-10] MEDS ORDERED: CEFAZOLIN 1,000 MG ONE (11:03)
[2020-08-10] MEDS ORDERED: PROPOFOL 10 MG/ML, 20ML ONE (11:03)
[2020-08-10] MEDS ORDERED: CHLORHEXIDINE 15 ML UDC ONE (11:20)
[2020-08-10] MEDS ORDERED: CHLORHEXIDINE 15 ML UDC PO ONE (11:30)
[2020-08-10] MEDS ORDERED: SUCCINYLCHOLINE 20 MG/ML, 10ML ONE (11:50)
[2020-08-10] MEDS ORDERED: ONDANSETRON 2MG/ML, 2ML IVPush PRN (12:00)
[2020-08-10] MEDS ORDERED: FENTANYL PF 100 MCG/2ML IV PRN (12:00)
[2020-08-10] MEDS ORDERED: ACETAMINOPHEN 325 MG TABLET PO PRN (12:00)
[2020-08-10] MEDS ORDERED: MEPERIDINE/PF 25MG/0.5ML IVPush PRN (12:00)
[2020-08-10] MEDS ORDERED: morphine SULFATE 10 MG/ML, 1ML IVPush PRN (12:00)
[2020-08-10] MEDS ORDERED: LABETALOL 5MG/ML, 20ML IV PRN (12:00)
[2020-08-10] MEDS ORDERED: OXYcodone 5 MG/5 ML ORAL.SOL UDC PO PRN (12:00)
[2020-08-10] MEDS ORDERED: HYDROmorphone 1 MG/ML, 1ML INJ IVPush PRN (12:00)
[2020-08-10] MEDS ORDERED: hydrALAzine 20 MG/ML, 1ML IV PRN (12:00)
[2020-08-10] MEDS ORDERED: hydrALAzine 20 MG/ML, 1ML ONE (12:17)
[2020-08-10] MEDS: PANTOPRAZOLE 40MG TABLET PO SCH (16:49)
[2020-08-11] VITALS (7 sets, daily range): BP systolic 144–194; BP diastolic 88–115
[2020-08-11] MEDS: DIPHENOXYLATE/ATROPINE TABLET PO PRN ×2 (00:54→10:18)
[2020-08-11 01:34] LABS: CLOSTRIDIUM DIFFICILE ANTIGEN NEGATIVE; CLOSTRIDIUM DIFFICILE TOXIN NEGATIVE (Negative)
[2020-08-11] MEDS: METOCLOPRAMIDE 5 MG/ML, 2ML IVPush SCH ×4 (02:30→20:18)
[2020-08-11] MEDS: SODIUM CHLORIDE 0.9% 1,000 ML IV SCH ×3 (02:31→23:51)
[2020-08-11] MEDS: PIPERACILLIN/TAZO 3.375 GM in DEXTROSE 5% 50 ML IV SCH ×3 (02:31→15:41)
[2020-08-11] MEDS: PANTOPRAZOLE 40MG TABLET PO SCH ×2 (05:17→16:45)
[2020-08-11] MEDS: HYDROcodone/APAP 5/325 TABLET PO PRN ×3 (05:18→20:52)
[2020-08-11] MEDS: ACETAMINOPHEN 325 MG TABLET PO PRN (05:32)
[2020-08-11] MEDS: ONDANSETRON 2MG/ML, 2ML IVPush PRN (05:32)
[2020-08-11] MEDS: LINEZOLID PMX 600MG/300ML 300 ML IV SCH (07:35)
[2020-08-11] MEDS: SODIUM CHLORIDE FLUSH 10ML SYR IVF SCH ×2 (07:36→20:51)
[2020-08-11] MEDS: LABETALOL 5MG/ML, 20ML IVPush PRN ×2 (07:37→16:50)
[2020-08-11] MEDS: LORazepam 2 MG/ML, 1ML IVPush PRN (08:05)
[2020-08-11] MEDS: INSULIN GLARGINE 100 UNITS/ML, PEN SQ-INSULIN SCH ×2 (08:05→20:17)
[2020-08-11] MEDS: INSULIN LISPRO 100 UNITS/ML, PEN SQ-INSULIN SCH ×4 (08:06→20:16)
[2020-08-11] MEDS ORDERED: ENALAPRILAT 1.25 MG/ML, 1ML ONE (10:50)
[2020-08-11] MEDS: ENALAPRILAT 1.25 MG/ML, 1ML IV PRN (11:10)
[2020-08-11 11:43] LABS: BASOPHILS % (AUTO) 1 % (0-1); EOSINOPHILS % (AUTO) 4 % (1-7); LYMPHOCYTES % (AUTO) 27 % (22-44); MEAN CORPUSCULAR HGB CONC 32.8 g/dL (33.2-36.2); MEAN PLATELET VOLUME 8.1 fL (7.4-10.4); MONOCYTES % (AUTO) 7 % (2-9); NEUTROPHILS % (AUTO) 61 % (42-75); PLATELET COUNT 442 x10^3/uL (130-400); RED BLOOD COUNT 3.66 x10^6/uL (4.38-5.82); RED CELL DISTRIBUTION WIDTH 15.4 % (9.4-14.8)
[2020-08-11 11:48] LABS: MD NO
[2020-08-11 11:49] LABS: ANION GAP 6 mmol/L (5-15); CHLORIDE 103 mmol/L (98-107); CREATININE 1.35 mg/dL (0.7-1.3)
[2020-08-11] MEDS: AMLODIPINE 5 MG TABLET PO SCH (12:11)
[2020-08-11] MEDS: morphine SULFATE 10 MG/ML, 1ML IVPush PRN (17:03)
[2020-08-11] MEDS ORDERED: PNEUMOC 13-VALENT VACC, 0.5 ML IM-VACC ONE (19:30)
[2020-08-11] MEDS: ERTAPENEM 1 GM in SODIUM CHLORIDE 0.9% 50 ML IV SCH (20:14)
[2020-08-12] VITALS (7 sets, daily range): BP systolic 126–181; BP diastolic 67–118
[2020-08-12] MEDS: ONDANSETRON 2MG/ML, 2ML IVPush PRN ×2 (00:03→06:29)
[2020-08-12] MEDS: LABETALOL 5MG/ML, 20ML IVPush PRN (00:20)
[2020-08-12] MEDS: HYDROcodone/APAP 5/325 TABLET PO PRN (01:54)
[2020-08-12] MEDS: METOCLOPRAMIDE 5 MG/ML, 2ML IVPush SCH ×4 (01:54→20:47)
[2020-08-12 05:34] LABS: BASOPHILS % (AUTO) 1 % (0-1); EOSINOPHILS % (AUTO) 4 % (1-7); LYMPHOCYTES % (AUTO) 27 % (22-44); MEAN CORPUSCULAR HEMOGLOBIN 27.5 pg (27.5-34.5); MEAN CORPUSCULAR HGB CONC 33.5 g/dL (33.2-36.2); MEAN PLATELET VOLUME 8.1 fL (7.4-10.4); MONOCYTES % (AUTO) 5 % (2-9); NEUTROPHILS % (AUTO) 63 % (42-75); PLATELET COUNT 457 x10^3/uL (130-400); RED BLOOD COUNT 3.62 x10^6/uL (4.38-5.82); RED CELL DISTRIBUTION WIDTH 15.2 % (9.4-14.8)
[2020-08-12 05:35] LABS: MD NO
[2020-08-12 05:48] LABS: ANION GAP 4 mmol/L (5-15); CALCIUM 8.3 mg/dL (8.5-10.1); CHLORIDE 104 mmol/L (98-107)
[2020-08-12] MEDS: SODIUM CHLORIDE 0.9% 1,000 ML IV SCH (06:18)
[2020-08-12] MEDS: PANTOPRAZOLE 40MG TABLET PO SCH ×2 (06:18→15:34)
[2020-08-12] MEDS: SODIUM CHLORIDE FLUSH 10ML SYR IVF SCH ×2 (08:48→20:47)
[2020-08-12] MEDS: AMLODIPINE 5 MG TABLET PO SCH (08:48)
[2020-08-12] MEDS: INSULIN LISPRO 100 UNITS/ML, PEN SQ-INSULIN SCH ×4 (09:00→20:53)
[2020-08-12] MEDS: INSULIN GLARGINE 100 UNITS/ML, PEN SQ-INSULIN SCH ×2 (09:01→20:53)
[2020-08-12] MEDS: LISINOPRIL 20 MG TABLET PO SCH (12:17)
[2020-08-12] MEDS: ERTAPENEM 1 GM in SODIUM CHLORIDE 0.9% 50 ML IV SCH (20:41)
[2020-08-12] MEDS: ENALAPRILAT 1.25 MG/ML, 1ML IV PRN (20:46)
[2020-08-12] MEDS: morphine SULFATE 10 MG/ML, 1ML IVPush PRN (20:46)
[2020-08-13 00:18] VITALS: BP 164/101
[2020-08-13] MEDS: LABETALOL 5MG/ML, 20ML IVPush PRN ×2 (00:29→16:59)
[2020-08-13] MEDS: DIPHENOXYLATE/ATROPINE TABLET PO PRN (01:02)
[2020-08-13] MEDS: METOCLOPRAMIDE 5 MG/ML, 2ML IVPush SCH ×4 (02:40→20:42)
[2020-08-13] MEDS: PANTOPRAZOLE 40MG TABLET PO SCH ×2 (05:50→16:57)
[2020-08-13] MEDS: LISINOPRIL 20 MG TABLET PO SCH (07:58)
[2020-08-13] MEDS: INSULIN GLARGINE 100 UNITS/ML, PEN SQ-INSULIN SCH ×3 (07:59→20:43)
[2020-08-13] MEDS: INSULIN LISPRO 100 UNITS/ML, PEN SQ-INSULIN SCH ×4 (07:59→20:44)
[2020-08-13] MEDS: SODIUM CHLORIDE FLUSH 10ML SYR IVF SCH ×2 (07:59→20:44)
[2020-08-13 08:06] VITALS: BP 178/112
[2020-08-13] MEDS ORDERED: INSULIN GLARGINE, 100 UNITS/ML VIAL SQ-INSULIN ONE (11:00)
[2020-08-13 15:04] VITALS: BP 164/106
[2020-08-13 18:39] VITALS: BP 171/107
[2020-08-13] MEDS: ERTAPENEM 1 GM in SODIUM CHLORIDE 0.9% 50 ML IV SCH (20:41)
[2020-08-13] MEDS: ENALAPRILAT 1.25 MG/ML, 1ML IV PRN (20:42)
[2020-08-14 00:48] VITALS: BP 176/121
[2020-08-14] MEDS: METOCLOPRAMIDE 5 MG/ML, 2ML IVPush SCH ×2 (01:54→08:13)
[2020-08-14] MEDS: LABETALOL 5MG/ML, 20ML IVPush PRN ×2 (01:57→20:28)
[2020-08-14 02:14] VITALS: BP 156/100
[2020-08-14] MEDS: PANTOPRAZOLE 40MG TABLET PO SCH ×2 (05:08→16:53)
[2020-08-14 06:29] VITALS: BP 172/104
[2020-08-14 07:58] LABS: ALANINE AMINOTRANSFERASE 18 U/L (12-78); ALBUMIN 2.4 g/dL (3.4-5.0); ANION GAP 5 mmol/L (5-15); BASOPHILS % (AUTO) 1 % (0-1); C-REACTIVE PROTEIN, QUANT 0.76 mg/dL (0.02-0.49); CALCIUM 8.6 mg/dL (8.5-10.1); CHLORIDE 100 mmol/L (98-107); CREATININE 1.07 mg/dL (0.7-1.3); EOSINOPHILS % (AUTO) 3 % (1-7); LYMPHOCYTES % (AUTO) 29 % (22-44); MEAN CORPUSCULAR HEMOGLOBIN 27.7 pg (27.5-34.5); MEAN CORPUSCULAR HGB CONC 33.8 g/dL (33.2-36.2); MONOCYTES % (AUTO) 5 % (2-9); NEUTROPHILS % (AUTO) 61 % (42-75); PLATELET COUNT 478 x10^3/uL (130-400); RED CELL DISTRIBUTION WIDTH 14.7 % (9.4-14.8)
[2020-08-14 08:01] LABS: ALKALINE PHOSPHATASE 88 U/L (45-117); BILIRUBIN,TOTAL 0.2 mg/dL (0.2-1.0); HCT (SEDRATE) 29.5 % (39.2-51.8); MD NO
[2020-08-14] MEDS: LISINOPRIL 20 MG TABLET PO SCH ×2 (08:12→20:29)
[2020-08-14] MEDS: INSULIN GLARGINE 100 UNITS/ML, PEN SQ-INSULIN SCH ×2 (08:12→20:30)
[2020-08-14] MEDS: INSULIN LISPRO 100 UNITS/ML, PEN SQ-INSULIN SCH ×7 (08:13→20:30)
[2020-08-14] MEDS: SODIUM CHLORIDE FLUSH 10ML SYR IVF SCH ×2 (08:13→20:31)
[2020-08-14 14:19] VITALS: BP 154/97
[2020-08-14] MEDS: METOCLOPRAMIDE 10MG TABLET PO SCH ×2 (16:00→20:29)
[2020-08-14 18:38] VITALS: BP 161/103
[2020-08-14] MEDS: ERTAPENEM 1 GM in SODIUM CHLORIDE 0.9% 50 ML IV SCH (20:27)
[2020-08-15] MEDS: PANTOPRAZOLE 40MG TABLET PO SCH ×2 (05:18→16:04)
[2020-08-15 06:16] VITALS: BP 179/116
[2020-08-15] MEDS: LABETALOL 5MG/ML, 20ML IVPush PRN (06:37)
[2020-08-15] MEDS ORDERED: METOPROLOL TARTRATE 25 MG TAB PO SCH ×2 (07:00→18:00)
[2020-08-15] MEDS: METOCLOPRAMIDE 10MG TABLET PO SCH ×3 (07:30→16:04)
[2020-08-15] MEDS: INSULIN LISPRO 100 UNITS/ML, PEN SQ-INSULIN SCH ×6 (07:39→16:00)
[2020-08-15 07:50] VITALS: BP 172/119
[2020-08-15] MEDS: ENALAPRILAT 1.25 MG/ML, 1ML IV PRN (07:55)
[2020-08-15] MEDS: SODIUM CHLORIDE FLUSH 10ML SYR IVF SCH (07:55)
[2020-08-15] MEDS ORDERED: INSULIN GLARGINE 100 UNITS/ML, PEN SQ-INSULIN SCH ×2 (09:00)
[2020-08-15] MEDS: LISINOPRIL 20 MG TABLET PO SCH (09:08)
[2020-08-15 11:29] VITALS: BP 154/113
[2020-08-15] MEDS ORDERED: INSU100I13 SQ-INSULIN (15:36)
[2020-08-15] MEDS ORDERED: METO10TA2 PO (15:36)
[2020-08-15] MEDS ORDERED: LISI-170 PO (15:36)
[2020-08-15] MEDS ORDERED: INSU100I11 SQ-INSULIN (15:36)
[2020-08-15] MEDS ORDERED: METO25TA35 PO (15:36)
[2020-08-15] MEDS ORDERED: PANT40TA6 PO (15:36)
[2020-08-15] MEDS: ERTAPENEM 1 GM in SODIUM CHLORIDE 0.9% 50 ML IV SCH (16:40)
== END 2020-08-15 18:28 | disposition home or self-care (01) | DRG 623 ==
LOC: ED 15:34 → EDIP 21:49 → 3N 21:50 → 5SO 08-06 22:18 → 4WST 08-10 07:16
PROVIDERS: ADMIT Family Medicine; ATTEND Hospitalist
PROC: 0JBQ0ZZ Excision of Right Foot Subcutaneous Tissue and Fascia, Open Approach (ICD-10-PCS; principal; 2020-08-10 12:00)
PROC: B5180ZA Fluoroscopy of Superior Vena Cava using High Osmolar Contrast, Guidance (ICD-10-PCS; 2020-08-12)
PROC: 02HV33Z Insertion of Infusion Device into Superior Vena Cava, Percutaneous Approach (ICD-10-PCS; 2020-08-12)
PROC: B548ZZA Ultrasonography of Superior Vena Cava, Guidance (ICD-10-PCS; 2020-08-12)
DX: E10.621 Type 1 diabetes mellitus with foot ulcer (principal); E87.1 Hypo-osmolality and hyponatremia; M86.8X7 Other osteomyelitis, ankle and foot; L03.115 Cellulitis of right lower limb; B95.61 Methicillin susceptible Staphylococcus aureus infection as the cause of diseases classified elsewhere; N17.0 Acute kidney failure with tubular necrosis; D50.9 Iron deficiency anemia, unspecified; E10.43 Type 1 diabetes mellitus with diabetic autonomic (poly)neuropathy; E10.65 Type 1 diabetes mellitus with hyperglycemia; E10.69 Type 1 diabetes mellitus with other specified complication; I10 Essential (primary) hypertension; G60.8 Other hereditary and idiopathic neuropathies; K31.84 Gastroparesis; L97.519 Non-pressure chronic ulcer of other part of right foot with unspecified severity; D72.829 Elevated white blood cell count, unspecified; Z88.1 Allergy status to other antibiotic agents
CPT/HCPCS: 36415; 36573; 71045; 71275; 80048; 80053; 80202; 80307; 82010; 82803; 82962; 83036; 83605; 83735; 84100; 84484; 85014; 85018; 85025; 85651; 86140; 87015; 87040; 87070; 87075; 87077; 87116; 87176; 87186; 87205; 87206; 87324; 93005; 93306; 96365; 96366; 96375; G0378; J0295; J0690; J1335; J1644; J1650; J2020; J2250; J2405; J2543; J2550; J2704; J3010; J3370; Q9967; U0005; C1751; C9113; G0009; J0330; J0360; J1815; J2060; J2270; J2765; J7030; J7040; J7050; Q0181; U0003

== ENCOUNTER → 2020-08-21 | Outpatient (CLI) | payer MEDICAID ==
[~2020-08-21] MED LIST changes: +LISI-170 PO; +METO10TA2 PO; +METO25TA35 PO; +PANT40TA6 PO
== END | disposition home or self-care (01) ==
LOC: WOUND 12:44
PROVIDERS: ATTEND Internal Medicine
DX: E10.621 Type 1 diabetes mellitus with foot ulcer (principal); L97.512 Non-pressure chronic ulcer of other part of right foot with fat layer exposed; I10 Essential (primary) hypertension; E10.43 Type 1 diabetes mellitus with diabetic autonomic (poly)neuropathy; K31.84 Gastroparesis; D50.9 Iron deficiency anemia, unspecified; A49.01 Methicillin susceptible Staphylococcus aureus infection, unspecified site; E10.69 Type 1 diabetes mellitus with other specified complication; M86.071 Acute hematogenous osteomyelitis, right ankle and foot; L84 Corns and callosities; E10.10 Type 1 diabetes mellitus with ketoacidosis without coma; Z88.1 Allergy status to other antibiotic agents; Z79.4 Long term (current) use of insulin
CPT/HCPCS: 11042

== ENCOUNTER → 2020-08-28 | Outpatient (CLI) | payer MEDICAID | END | disposition home or self-care (01) | LOC: WOUND 10:33 | PROVIDERS: ATTEND Internal Medicine Cardiovascular Disease | DX: E10.621 Type 1 diabetes mellitus with foot ulcer (principal); L97.511 Non-pressure chronic ulcer of other part of right foot limited to breakdown of skin; I10 Essential (primary) hypertension; E10.43 Type 1 diabetes mellitus with diabetic autonomic (poly)neuropathy; K31.84 Gastroparesis; D50.9 Iron deficiency anemia, unspecified; A49.01 Methicillin susceptible Staphylococcus aureus infection, unspecified site; E10.69 Type 1 diabetes mellitus with other specified complication; M86.071 Acute hematogenous osteomyelitis, right ankle and foot; N17.0 Acute kidney failure with tubular necrosis; L84 Corns and callosities; E10.10 Type 1 diabetes mellitus with ketoacidosis without coma; Z88.1 Allergy status to other antibiotic agents; Z79.4 Long term (current) use of insulin | CPT/HCPCS: 99213 ==

== ENCOUNTER 2020-09-04 08:25 | Outpatient (CLI) | payer MEDICAID | END 2020-09-04 23:59 | disposition home or self-care (01) | LOC: WOUND 08:25 | PROVIDERS: ATTEND Internal Medicine | DX: E10.621 Type 1 diabetes mellitus with foot ulcer (principal); L97.512 Non-pressure chronic ulcer of other part of right foot with fat layer exposed; I10 Essential (primary) hypertension; E10.43 Type 1 diabetes mellitus with diabetic autonomic (poly)neuropathy; K31.84 Gastroparesis; D50.9 Iron deficiency anemia, unspecified; A49.01 Methicillin susceptible Staphylococcus aureus infection, unspecified site; E10.69 Type 1 diabetes mellitus with other specified complication; M86.071 Acute hematogenous osteomyelitis, right ankle and foot; N17.0 Acute kidney failure with tubular necrosis; M86.671 Other chronic osteomyelitis, right ankle and foot; G60.8 Other hereditary and idiopathic neuropathies; L84 Corns and callosities; E10.10 Type 1 diabetes mellitus with ketoacidosis without coma; Z88.1 Allergy status to other antibiotic agents; Z79.4 Long term (current) use of insulin; Z88.8 Allergy status to other drugs, medicaments and biological substances; Z87.891 Personal history of nicotine dependence | CPT/HCPCS: 11042 ==

== ENCOUNTER → 2020-09-04 | Outpatient (CLI) | payer MEDICAID | END | disposition home or self-care (01) | LOC: CFH 09:27 | PROVIDERS: ATTEND Internal Medicine | DX: E10.621 Type 1 diabetes mellitus with foot ulcer (principal); M86.071 Acute hematogenous osteomyelitis, right ankle and foot | CPT/HCPCS: 71046 ==

== ENCOUNTER 2020-09-07 19:58 | Inpatient (IN) | payer MEDICAID ==
[~2020-09-07] VITALS: Ht 190.5 cm; Wt 83.8 kg
[2020-09-07] MEDS ORDERED: ONDANSETRON 2MG/ML, 2ML IVPush ONE (20:30)
[2020-09-07] MEDS ORDERED: SODIUM CHLORIDE 0.9% 1,000ML IVBOLUS ONE ×2 (20:30→22:00)
[2020-09-07] MEDS ORDERED: ONDANSETRON 2MG/ML, 2ML ONE (20:35)
--- NOTE | 2020-09-07 20:37 | NUR ---
PT MEDICATED PER MAY. XRAY AT BEDSIDE
[2020-09-07] MEDS ORDERED: PROMETHAZINE 25 MG/ML, 1ML ONE (20:53)
[2020-09-07 20:54] LABS: PH, VENOUS 7.429 pH (7.320-7.420)
[2020-09-07 20:55] LABS: BASOPHILS % (AUTO) 1 % (0-1); EOSINOPHILS % (AUTO) 0 % (1-7); LYMPHOCYTES % (AUTO) 15 % (22-44); MEAN CORPUSCULAR HEMOGLOBIN 27.1 pg (27.5-34.5); MEAN CORPUSCULAR HGB CONC 32.1 g/dL (33.2-36.2); MEAN PLATELET VOLUME 9.3 fL (7.4-10.4); MONOCYTES % (AUTO) 3 % (2-9); NEUTROPHILS % (AUTO) 82 % (42-75); PLATELET COUNT 444 x10^3/uL (130-400); RED BLOOD COUNT 4.62 x10^6/uL (4.38-5.82)
--- NOTE | 2020-09-07 20:56 | NUR ---
PT STILL VOMITING AT THIS TIME, ERP UPDATED VERBAL FOR PHENERGAN IM
[2020-09-07 20:58] LABS: O2 FLOW ROOM AIR L/min
[2020-09-07] MEDS ORDERED: PROMETHAZINE 25 MG/ML, 1ML IM ONE ×2 (21:00→22:00)
[2020-09-07 21:07] LABS: ALBUMIN 2.7 g/dL (3.4-5.0); ANION GAP 19 mmol/L (5-15); CALCIUM 8.9 mg/dL (8.5-10.1); CHLORIDE 92 mmol/L (98-107); CREATININE 1.67 mg/dL (0.7-1.3)
[2020-09-07 21:11] LABS: ALANINE AMINOTRANSFERASE 37 U/L (12-78); ALKALINE PHOSPHATASE 215 U/L (45-117); BILIRUBIN,TOTAL 0.7 mg/dL (0.2-1.0); TOTAL PROTEIN 7.1 g/dL (6.4-8.2)
--- NOTE | 2020-09-07 21:11 | NUR ---
PT UP TO BSC NO ASSIST REQUIRED
--- NOTE | 2020-09-07 21:11 | NUR ---
Jhoan aleman in ED - 09/07/20 at 2111 by TIFFANIE PT UP TO BSC NO ASSIST REQUIRED
[2020-09-07 21:22] LABS: ACETONE, SERUM Large (80mg/dL) (Negative)
--- NOTE | 2020-09-07 21:31 | NUR ---
PT RESTING ON JOSE RAUL BERTRAND AT THIS TIME
[2020-09-07] MEDS ORDERED: INSULIN SINGLE DOSE, ER ONE (21:41)
[2020-09-07] MEDS ORDERED: INSULIN REGULAR 100 UNITS/ML, 3ML VIAL IVPush ONE (22:00)
[2020-09-07] MEDS: FERROUS SULFATE 325 MG TABLET PO SCH (22:30)
--- NOTE | 2020-09-07 22:43 | NUR ---
REPORT TO BENSON STONER PT READY FOR TRANSFER TO FLOOR. ALL QUESTIONS ADDRESSED.
--- NOTE | 2020-09-07 22:46 | NUR ---
PT UP TO BSC NO ASSIST REQ.
[2020-09-07] MEDS ORDERED: POLYETHYLENE GLYCOL 17 GM PACKET PO PRN (23:00)
[2020-09-07] MEDS ORDERED: SODIUM CHLORIDE 0.9% 1,000 ML IV SCH (23:00)
[2020-09-07] MEDS ORDERED: ACETAMINOPHEN 325 MG TABLET PO PRN (23:00)
[2020-09-07] MEDS ORDERED: INSULIN GLARGINE 100 UNITS/ML, PEN SQ-INSULIN SCH (23:00)
[2020-09-07] MEDS ORDERED: ONDANSETRON 2MG/ML, 2ML IVPush PRN (23:00)
[2020-09-07] MEDS ORDERED: BISACODYL 10 MG SUPP PR PRN (23:00)
[2020-09-07 23:10] VITALS: BP 158/99
[2020-09-07] MEDS: HEPARIN 5,000 UNITS/ML, 1ML SQ SCH (23:26)
[2020-09-08] MEDS: INSULIN LISPRO 100 UNITS/ML, PEN SQ-INSULIN SCH ×7 (00:01→23:00)
[2020-09-08 00:25] LABS: ANION GAP 20 mmol/L (5-15); CALCIUM 8.1 mg/dL (8.5-10.1); CHLORIDE 101 mmol/L (98-107); CREATININE 1.72 mg/dL (0.7-1.3)
[2020-09-08] MEDS: OXYcodone IR 5MG TABLET PO PRN ×2 (00:58→20:41)
[2020-09-08] MEDS ORDERED: MORPHINE SULFATE 4 MG/ML, 1ML IVPush ONE (01:30)
[2020-09-08] MEDS: SODIUM CHLORIDE 0.9% 1,000 ML IV SCH ×4 (02:48→18:58)
[2020-09-08 02:57] VITALS: BP 144/75
[2020-09-08 04:40] LABS: BASOPHILS % (AUTO) 1 % (0-1); EOSINOPHILS % (AUTO) 0 % (1-7); LYMPHOCYTES % (AUTO) 19 % (22-44); MEAN CORPUSCULAR HEMOGLOBIN 27.3 pg (27.5-34.5); MEAN CORPUSCULAR HGB CONC 33.3 g/dL (33.2-36.2); MEAN PLATELET VOLUME 8.8 fL (7.4-10.4); MONOCYTES % (AUTO) 4 % (2-9); NEUTROPHILS % (AUTO) 76 % (42-75); PLATELET COUNT 412 x10^3/uL (130-400); RED BLOOD COUNT 4.21 x10^6/uL (4.38-5.82); RED CELL DISTRIBUTION WIDTH 15.8 % (9.4-14.8)
[2020-09-08 04:53] LABS: ANION GAP 8 mmol/L (5-15); CALCIUM 8.3 mg/dL (8.5-10.1); CHLORIDE 110 mmol/L (98-107); CREATININE 1.62 mg/dL (0.7-1.3)
[2020-09-08 05:38] VITALS: BP 134/76
[2020-09-08] MEDS: METOCLOPRAMIDE 10MG TABLET PO SCH ×5 (07:00→20:41)
[2020-09-08] MEDS: HEPARIN 5,000 UNITS/ML, 1ML SQ SCH ×4 (07:00→23:36)
[2020-09-08 07:25] VITALS: BP 144/82
[2020-09-08] MEDS: FERROUS SULFATE 325 MG TABLET PO SCH ×3 (08:00→15:25)
[2020-09-08] MEDS: PANTOPRAZOLE 40MG TABLET PO SCH ×2 (09:00→09:04)
[2020-09-08] MEDS: SENNA/DOCUSATE TABLET PO SCH ×2 (09:00→09:04)
[2020-09-08] MEDS: METOPROLOL TARTRATE 50 MG TAB PO SCH ×3 (09:00→15:26)
[2020-09-08] MEDS: ERTAPENEM 1 GM in SODIUM CHLORIDE 0.9% 50 ML IV SCH (09:36)
[2020-09-08] MEDS ORDERED: MAALOX/HYOSCYAMINE/LIDOCAINE 45 ML BTL PO ONE (11:30)
[2020-09-08] MEDS: PHENOL THROAT SPRAY BOTTLE MM PRN ×2 (11:43→15:37)
[2020-09-08] MEDS: INSULIN GLARGINE 100 UNITS/ML, PEN SQ-INSULIN SCH ×2 (11:51→21:00)
[2020-09-08 11:57] LABS: ANION GAP 16 mmol/L (5-15); CALCIUM 7.8 mg/dL (8.5-10.1); CHLORIDE 105 mmol/L (98-107)
[2020-09-08 12:01] LABS: CREATININE 1.44 mg/dL (0.7-1.3)
[2020-09-08 12:57] VITALS: BP 151/82
[2020-09-08] MEDS ORDERED: INSULIN GLARGINE 100 UNITS/ML, PEN SQ-INSULIN ONE (14:30)
[2020-09-08] MEDS ORDERED: INSULIN REGULAR 100 UNITS/ML, 3ML VIAL SQ-INSULIN ONE (14:30)
[2020-09-08 15:13] LABS: PH, VENOUS 7.333 pH (7.320-7.420)
[2020-09-08] MEDS ORDERED: PANTOPRAZOLE 40MG TABLET PO ONE (16:00)
[2020-09-08 19:12] VITALS: BP 119/72
[2020-09-08 21:11] VITALS: BP 144/88
[2020-09-08] MEDS ORDERED: DEXTROSE 4 GM TAB.CHEW ONE (23:28)
[2020-09-08] MEDS ORDERED: DEXTROSE 4 GM TAB.CHEW PO PRN (23:30)
[2020-09-08] MEDS ORDERED: GLUCAGON 1 MG IM PRN (23:30)
[2020-09-08] MEDS: DEXTROSE 50%, 50ML SYRINGE IVPush PRN (23:36)
[2020-09-08] MEDS: SODIUM CHLORIDE FLUSH 10ML SYR IVF SCH (23:36)
[2020-09-09] MEDS: INSULIN LISPRO 100 UNITS/ML, PEN SQ-INSULIN SCH ×4 (03:00→17:31)
[2020-09-09 04:00] VITALS: BP 131/88
[2020-09-09] MEDS: DEXTROSE 50%, 50ML SYRINGE IVPush PRN (04:29)
[2020-09-09] MEDS: SODIUM CHLORIDE 0.9% 1,000 ML IV SCH (05:08)
[2020-09-09 05:25] VITALS: BP 135/92
[2020-09-09] MEDS: METOPROLOL TARTRATE 50 MG TAB PO SCH (05:26)
[2020-09-09 06:01] LABS: ANION GAP 7 mmol/L (5-15); CALCIUM 7.5 mg/dL (8.5-10.1); CHLORIDE 108 mmol/L (98-107); CREATININE 1.18 mg/dL (0.7-1.3)
[2020-09-09] MEDS: METOCLOPRAMIDE 10MG TABLET PO SCH ×3 (08:46→17:33)
[2020-09-09 08:48] VITALS: BP 135/57
[2020-09-09] MEDS: FERROUS SULFATE 325 MG TABLET PO SCH (08:48)
[2020-09-09] MEDS: PANTOPRAZOLE 40MG TABLET PO SCH (08:49)
[2020-09-09] MEDS: HEPARIN 5,000 UNITS/ML, 1ML SQ SCH ×2 (08:50→15:00)
[2020-09-09] MEDS: SODIUM CHLORIDE FLUSH 10ML SYR IVF SCH (08:51)
[2020-09-09] MEDS: SENNA/DOCUSATE TABLET PO SCH (08:52)
[2020-09-09] MEDS: INSULIN GLARGINE 100 UNITS/ML, PEN SQ-INSULIN SCH (09:00)
[2020-09-09] MEDS ORDERED: MAALOX/HYOSCYAMINE/LIDOCAINE 45 ML BTL PO ONE (09:30)
[2020-09-09] MEDS: ERTAPENEM 1 GM in SODIUM CHLORIDE 0.9% 50 ML IV SCH (09:48)
[2020-09-09] MEDS ORDERED: LOPERAMIDE 2 MG CAPSULE PO PRN (10:00)
[2020-09-09 12:56] VITALS: BP 142/89
[2020-09-09 12:58] VITALS: BP 142/89
== END 2020-09-09 17:50 | disposition home or self-care (01) | DRG 638 ==
LOC: ED 20:45 → EDIP 21:55 → 5SO 23:04 → 4EST 09-08 20:57
PROVIDERS: ADMIT Internal Medicine; ATTEND Hospitalist
DX: E10.10 Type 1 diabetes mellitus with ketoacidosis without coma (principal); M86.9 Osteomyelitis, unspecified; N17.9 Acute kidney failure, unspecified; E87.1 Hypo-osmolality and hyponatremia; D50.9 Iron deficiency anemia, unspecified; E10.43 Type 1 diabetes mellitus with diabetic autonomic (poly)neuropathy; E10.69 Type 1 diabetes mellitus with other specified complication; E86.0 Dehydration; R79.89 Other specified abnormal findings of blood chemistry; E87.5 Hyperkalemia; I10 Essential (primary) hypertension; K31.84 Gastroparesis; L97.509 Non-pressure chronic ulcer of other part of unspecified foot with unspecified severity; Z79.4 Long term (current) use of insulin
CPT/HCPCS: 36415; 71045; 80048; 80053; 82010; 82803; 82962; 83036; 83690; 85025; 87040; 93005; 96361; 96372; 96374; 99291; G0378; J1335; J1644; J1815; J2405; J2550; J2270; J7030; Q0181

== ENCOUNTER 2020-09-11 08:14 | Outpatient (CLI) | payer MEDICAID | END 2020-09-11 23:59 | disposition home or self-care (01) | LOC: WOUND 08:14 | PROVIDERS: ATTEND Internal Medicine | DX: E10.621 Type 1 diabetes mellitus with foot ulcer (principal); L97.512 Non-pressure chronic ulcer of other part of right foot with fat layer exposed; I10 Essential (primary) hypertension; D50.9 Iron deficiency anemia, unspecified; E10.43 Type 1 diabetes mellitus with diabetic autonomic (poly)neuropathy; K31.84 Gastroparesis; A49.01 Methicillin susceptible Staphylococcus aureus infection, unspecified site; E10.69 Type 1 diabetes mellitus with other specified complication; M86.671 Other chronic osteomyelitis, right ankle and foot; M86.071 Acute hematogenous osteomyelitis, right ankle and foot; E10.10 Type 1 diabetes mellitus with ketoacidosis without coma; N17.0 Acute kidney failure with tubular necrosis; K21.9 Gastro-esophageal reflux disease without esophagitis; L84 Corns and callosities; Z88.1 Allergy status to other antibiotic agents; Z79.4 Long term (current) use of insulin; Z88.8 Allergy status to other drugs, medicaments and biological substances; Z87.891 Personal history of nicotine dependence | CPT/HCPCS: 11042 ==

== ENCOUNTER 2020-09-16 13:22 | Inpatient (IN) | payer MEDICAID ==
[~2020-09-16] VITALS: Ht 190.5 cm; Wt 80.2 kg
--- NOTE | 2020-09-16 13:52 | NUR ---
PT LETHARGIC IN TRIAGE BS READ HIGH ON OUR MONITOR CO N/V FATHER AT THE BS PT REMAINS LETHARGIC IN ROOM NAUSEATED AT THIS TIME HAS A PICC LINE IN THE L UPPER ARM FLIUDS STARTED
[2020-09-16] MEDS ORDERED: ONDANSETRON 2MG/ML, 2ML ONE ×2 (13:58→15:31)
[2020-09-16] MEDS ORDERED: SODIUM CHLORIDE 0.9% 1,000ML IVBOLUS ONE ×3 (14:00→15:30)
[2020-09-16] MEDS ORDERED: ONDANSETRON 2MG/ML, 2ML IVPush ONE ×2 (14:00→15:30)
[2020-09-16 14:29] LABS: FIO2 ROOM AIR %; PH, VENOUS 7.297 pH (7.320-7.420)
--- NOTE | 2020-09-16 14:34 | NUR ---
PLACED ON A BED ALEX GIVEN URINAL
[2020-09-16 14:40] LABS: BASOPHILS % (AUTO) 1 % (0-1); EOSINOPHILS % (AUTO) 0 % (1-7); LYMPHOCYTES % (AUTO) 12 % (22-44); MEAN CORPUSCULAR HEMOGLOBIN 27.2 pg (27.5-34.5); MEAN CORPUSCULAR HGB CONC 30.8 g/dL (33.2-36.2); MEAN PLATELET VOLUME 9.6 fL (7.4-10.4); MONOCYTES % (AUTO) 3 % (2-9); NEUTROPHILS % (AUTO) 85 % (42-75); PLATELET COUNT 406 x10^3/uL (130-400); RED BLOOD COUNT 4.44 x10^6/uL (4.38-5.82)
[2020-09-16 14:48] LABS: ALBUMIN 2.5 g/dL (3.4-5.0); ANION GAP 26 mmol/L (5-15); CALCIUM 9.1 mg/dL (8.5-10.1); CHLORIDE 88 mmol/L (98-107)
[2020-09-16 14:51] LABS: ALANINE AMINOTRANSFERASE 36 U/L (12-78); ALKALINE PHOSPHATASE 230 U/L (45-117); BILIRUBIN,TOTAL 1.1 mg/dL (0.2-1.0); CREATININE 1.54 mg/dL (0.7-1.3); TOTAL PROTEIN 6.6 g/dL (6.4-8.2)
[2020-09-16 14:54] LABS: MICROSCOPIC INDICATED
[2020-09-16 14:59] LABS: ACETONE, SERUM Large (80mg/dL) (Negative)
[2020-09-16] MEDS ORDERED: ACETAMINOPHEN 325 MG TABLET PO PRN (15:30)
[2020-09-16] MEDS: D5%-0.45NACL+KCL 20MEQ 1,000 ML IV SCH (15:30)
[2020-09-16] MEDS ORDERED: REGULAR INSULIN 100 UNITS in SODIUM CHLORIDE 0.9% 99 ML IV PRN (15:30)
[2020-09-16] MEDS ORDERED: PROMETHAZINE 25 MG/ML, 1ML ONE (15:39)
[2020-09-16] MEDS: PROMETHAZINE 25 MG/ML, 1ML IM PRN ×2 (15:43→21:14)
--- NOTE | 2020-09-16 16:00 | NUR ---
REPORT CALLED TO THE FLOOR
[2020-09-16 16:23] LABS: C-REACTIVE PROTEIN, QUANT 0.17 mg/dL (0.02-0.49)
--- NOTE | 2020-09-16 16:35 | NUR ---
PT CLEANED OF STOOL X3 BEFOR TRANS TO THE FLOOR
[2020-09-16] MEDS ORDERED: INSULIN REGULAR 100 UNITS/ML, 3ML VIAL ONE (16:47)
[2020-09-16] MEDS ORDERED: INSULIN REGULAR 100 UNITS/ML, 3ML VIAL IVPush ONE (17:00)
[2020-09-16] MEDS: CEFAZOLIN 2,000 MG in SODIUM CHLORIDE 0.9% 50 ML IV SCH (17:08)
[2020-09-16] MEDS: SODIUM CHLORIDE 0.9% 1,000 ML IV SCH ×2 (17:25→20:26)
[2020-09-16 17:55] LABS: HCT (SEDRATE) 39.2 % (39.2-51.8)
[2020-09-16] MEDS: ONDANSETRON 2MG/ML, 2ML IV PRN (20:16)
[2020-09-16] MEDS: MORPHINE SULFATE 4 MG/ML, 1ML IVPush PRN (20:17)
[2020-09-16 21:20] LABS: ANION GAP 23 mmol/L (5-15); CALCIUM 8.7 mg/dL (8.5-10.1); CHLORIDE 102 mmol/L (98-107); CREATININE 1.98 mg/dL (0.7-1.3)
[2020-09-17] MEDS: D5%-0.45NACL+KCL 20MEQ 1,000 ML IV SCH ×4 (00:33→21:19)
[2020-09-17] MEDS: ONDANSETRON 2MG/ML, 2ML IV PRN ×2 (01:09→07:48)
[2020-09-17] MEDS: MORPHINE SULFATE 4 MG/ML, 1ML IVPush PRN ×4 (01:10→20:10)
[2020-09-17] MEDS: SODIUM CHLORIDE 0.9% 1,000 ML IV SCH ×6 (01:30→21:00)
[2020-09-17 01:32] LABS: ANION GAP 17 mmol/L (5-15); CALCIUM 8.8 mg/dL (8.5-10.1); CHLORIDE 109 mmol/L (98-107); CREATININE 1.94 mg/dL (0.7-1.3)
[2020-09-17] MEDS: CEFAZOLIN 2,000 MG in SODIUM CHLORIDE 0.9% 50 ML IV SCH (04:07)
[2020-09-17 04:52] LABS: ANION GAP 11 mmol/L (5-15); CALCIUM 8.8 mg/dL (8.5-10.1); CHLORIDE 110 mmol/L (98-107); CREATININE 1.64 mg/dL (0.7-1.3)
[2020-09-17] MEDS ORDERED: METOPROLOL TARTRATE 50 MG TAB PO SCH (07:00)
[2020-09-17] MEDS: PANTOPRAZOLE 40 MG IV IVPush SCH (07:53)
[2020-09-17] MEDS ORDERED: hydrALAzine 20 MG/ML, 1ML IV PRN (08:00)
[2020-09-17] MEDS: PROMETHAZINE 25 MG/ML, 1ML IM PRN (08:02)
[2020-09-17] MEDS: LABETALOL 5MG/ML, 20ML IVPush PRN ×2 (08:48→21:08)
[2020-09-17] MEDS ORDERED: AMLODIPINE 10 MG TAB PO SCH (09:00)
[2020-09-17 09:26] LABS: ANION GAP 12 mmol/L (5-15); CALCIUM 8.2 mg/dL (8.5-10.1); CHLORIDE 109 mmol/L (98-107); CREATININE 1.64 mg/dL (0.7-1.3)
[2020-09-17] MEDS ORDERED: cloniDINE 0.1MG PATCH TD SCH (10:30)
[2020-09-17] MEDS ORDERED: DAPTOMYCIN 320 MG in SODIUM CHLORIDE 0.9% 100 ML IV SCH (12:00)
[2020-09-17] MEDS ORDERED: ERTAPENEM 1 GM in SODIUM CHLORIDE 0.9% 50 ML IV SCH (12:00)
[2020-09-17] MEDS ORDERED: REGULAR INSULIN 100 UNITS in SODIUM CHLORIDE 0.9% 99 ML IV PRN (12:30)
[2020-09-17 13:25] LABS: ANION GAP 7 mmol/L (5-15); CALCIUM 8.1 mg/dL (8.5-10.1); CHLORIDE 111 mmol/L (98-107); CREATININE 1.81 mg/dL (0.7-1.3)
[2020-09-17 17:39] LABS: ANION GAP 6 mmol/L (5-15); CALCIUM 8.3 mg/dL (8.5-10.1); CHLORIDE 109 mmol/L (98-107); CREATININE 1.23 mg/dL (0.7-1.3)
[2020-09-17] MEDS: METOPROLOL TARTRATE 50 MG TAB PO SCH (20:09)
[2020-09-18] MEDS: SODIUM CHLORIDE 0.9% 1,000 ML IV SCH (02:30)
[2020-09-18 04:38] LABS: BASOPHILS % (AUTO) 1 % (0-1); EOSINOPHILS % (AUTO) 0 % (1-7); LYMPHOCYTES % (AUTO) 20 % (22-44); MEAN CORPUSCULAR HEMOGLOBIN 27.7 pg (27.5-34.5); MEAN CORPUSCULAR HGB CONC 33.5 g/dL (33.2-36.2); MEAN PLATELET VOLUME 8.5 fL (7.4-10.4); MONOCYTES % (AUTO) 5 % (2-9); NEUTROPHILS % (AUTO) 74 % (42-75); PLATELET COUNT 419 x10^3/uL (130-400); RED BLOOD COUNT 3.82 x10^6/uL (4.38-5.82); RED CELL DISTRIBUTION WIDTH 17.1 % (9.4-14.8)
[2020-09-18] MEDS: D5%-0.45NACL+KCL 20MEQ 1,000 ML IV SCH (05:08)
[2020-09-18] MEDS: LABETALOL 5MG/ML, 20ML IVPush PRN ×2 (05:08→13:48)
[2020-09-18] MEDS: MORPHINE SULFATE 4 MG/ML, 1ML IVPush PRN ×2 (05:18→18:40)
[2020-09-18 06:59] LABS: ALANINE AMINOTRANSFERASE 32 U/L (12-78); ANION GAP 5 mmol/L (5-15); CHLORIDE 109 mmol/L (98-107); CREATININE 1.14 mg/dL (0.7-1.3)
[2020-09-18 07:01] LABS: ALKALINE PHOSPHATASE 173 U/L (45-117); BILIRUBIN,TOTAL 0.3 mg/dL (0.2-1.0); TOTAL PROTEIN 5.5 g/dL (6.4-8.2)
[2020-09-18] MEDS: PANTOPRAZOLE 40 MG IV IVPush SCH (07:30)
[2020-09-18] MEDS ORDERED: DAPTOMYCIN IV SCH (08:00)
[2020-09-18] MEDS ORDERED: SODIUM CHLORIDE 0.9% IV SCH (08:00)
[2020-09-18] MEDS: IRON SUCROSE COMPLEX 100MG/5ML IV SCH (08:52)
[2020-09-18] MEDS: METOPROLOL TARTRATE 50 MG TAB PO SCH ×2 (08:52→21:55)
[2020-09-18] MEDS: ENOXAPARIN 40 MG/0.4 ML SQ SCH (08:55)
[2020-09-18] MEDS: CEFAZOLIN 2,000 MG in SODIUM CHLORIDE 0.9% 50 ML IV SCH ×2 (09:03→16:57)
[2020-09-18] MEDS: INSULIN LISPRO 100 UNITS/ML, PEN SQ-INSULIN SCH ×4 (10:56→21:55)
[2020-09-18] MEDS ORDERED: DEXTROSE 4 GM TAB.CHEW PO PRN (11:00)
[2020-09-18] MEDS ORDERED: GLUCAGON 1 MG IM PRN (11:00)
[2020-09-18] MEDS ORDERED: INSULIN GLARGINE 100 UNITS/ML, PEN SQ-INSULIN ONE (11:00)
[2020-09-18] MEDS ORDERED: DEXTROSE 50%, 50ML SYRINGE IVPush PRN (11:00)
[2020-09-18 11:53] LABS: CLOSTRIDIUM DIFFICILE ANTIGEN NEGATIVE; CLOSTRIDIUM DIFFICILE TOXIN NEGATIVE (Negative)
[2020-09-18] MEDS ORDERED: DIPHENOXYLATE/ATROPINE TABLET PO PRN (12:00)
[2020-09-18] MEDS: ONDANSETRON 2MG/ML, 2ML IV PRN ×2 (13:52→18:22)
[2020-09-18 15:00] LABS: CALCIUM 7.8 mg/dL (8.5-10.1); CHLORIDE 101 mmol/L (98-107); CREATININE 1.06 mg/dL (0.7-1.3)
[2020-09-18 15:06] LABS: ANION GAP 7 mmol/L (5-15)
[2020-09-18 17:49] VITALS: BP 118/70
[2020-09-18 17:50] VITALS: BP 118/70
[2020-09-18 19:57] VITALS: BP 112/62
[2020-09-18] MEDS ORDERED: INSULIN GLARGINE 100 UNITS/ML, PEN SQ-INSULIN SCH ×2 (21:00)
[2020-09-18] MEDS: SODIUM CHLORIDE FLUSH 10ML SYR IVF SCH (21:00)
[2020-09-18 21:53] VITALS: BP 126/77
[2020-09-19] MEDS: CEFAZOLIN 2,000 MG in SODIUM CHLORIDE 0.9% 50 ML IV SCH ×3 (01:30→17:01)
[2020-09-19 02:00] VITALS: BP 108/60
[2020-09-19 04:29] LABS: BASOPHILS % (AUTO) 1 % (0-1); EOSINOPHILS % (AUTO) 1 % (1-7); LYMPHOCYTES % (AUTO) 27 % (22-44); MEAN CORPUSCULAR HEMOGLOBIN 27.7 pg (27.5-34.5); MEAN CORPUSCULAR HGB CONC 33.5 g/dL (33.2-36.2); MEAN PLATELET VOLUME 8.3 fL (7.4-10.4); MONOCYTES % (AUTO) 5 % (2-9); NEUTROPHILS % (AUTO) 66 % (42-75); PLATELET COUNT 315 x10^3/uL (130-400); RED BLOOD COUNT 3.49 x10^6/uL (4.38-5.82); RED CELL DISTRIBUTION WIDTH 16.2 % (9.4-14.8)
[2020-09-19 04:37] LABS: ANION GAP 4 mmol/L (5-15); CALCIUM 7.7 mg/dL (8.5-10.1); CHLORIDE 101 mmol/L (98-107); CREATININE 0.89 mg/dL (0.7-1.3)
[2020-09-19 06:48] VITALS: BP 131/87
[2020-09-19] MEDS: METOPROLOL TARTRATE 50 MG TAB PO SCH (07:55)
[2020-09-19] MEDS: IRON SUCROSE COMPLEX 100MG/5ML IV SCH (07:55)
[2020-09-19] MEDS: ENOXAPARIN 40 MG/0.4 ML SQ SCH (07:55)
[2020-09-19] MEDS: PANTOPRAZOLE 40 MG IV IVPush SCH (07:55)
[2020-09-19] MEDS: INSULIN LISPRO 100 UNITS/ML, PEN SQ-INSULIN SCH ×4 (07:59→17:03)
[2020-09-19] MEDS: SODIUM CHLORIDE FLUSH 10ML SYR IVF SCH (08:00)
[2020-09-19] MEDS ORDERED: INSULIN GLARGINE 100 UNITS/ML, PEN SQ-INSULIN SCH ×2 (09:00)
[2020-09-19] MEDS ORDERED: LISINOPRIL 10 MG TABLET PO SCH (09:00)
[2020-09-19] MEDS ORDERED: INSULIN GLARGINE 100 UNITS/ML, PEN SQ-INSULIN ONE (10:00)
[2020-09-19] MEDS ORDERED: INSULIN LISPRO 100 UNITS/ML, PEN SQ-INSULIN SCH ×2 (11:00→16:00)
[2020-09-19] MEDS ORDERED: CATHFLO-ALTEPLASE 2 MG/2 ML CATHFLUSH ONE (12:00)
[2020-09-19 13:10] VITALS: BP 114/67
[2020-09-19] MEDS ORDERED: INSU100I11 SQ-INSULIN (16:56)
[2020-09-19] MEDS ORDERED: INSU100I13 SQ-INSULIN (16:56)
[2020-09-19] MEDS ORDERED: LISI-167 PO (16:56)
[2020-09-19] MEDS ORDERED: METO25TA35 PO (16:56)
== END 2020-09-19 19:42 | disposition home or self-care (01) | DRG 637 ==
LOC: ED 15:37 → EDIP 15:43 → CCU 16:28 → 4EST 09-18 17:44
PROVIDERS: ADMIT Hospitalist; ATTEND Hospitalist
PROC: 02HV33Z Insertion of Infusion Device into Superior Vena Cava, Percutaneous Approach (ICD-10-PCS; principal; 2020-09-19)
PROC: B5181ZA Fluoroscopy of Superior Vena Cava using Low Osmolar Contrast, Guidance (ICD-10-PCS; 2020-09-19)
PROC: B548ZZA Ultrasonography of Superior Vena Cava, Guidance (ICD-10-PCS; 2020-09-19)
DX: E10.10 Type 1 diabetes mellitus with ketoacidosis without coma (principal); G93.41 Metabolic encephalopathy; K85.90 Acute pancreatitis without necrosis or infection, unspecified; J84.9 Interstitial pulmonary disease, unspecified; N17.9 Acute kidney failure, unspecified; E87.1 Hypo-osmolality and hyponatremia; M86.671 Other chronic osteomyelitis, right ankle and foot; E10.43 Type 1 diabetes mellitus with diabetic autonomic (poly)neuropathy; E10.621 Type 1 diabetes mellitus with foot ulcer; E10.69 Type 1 diabetes mellitus with other specified complication; E86.0 Dehydration; E87.5 Hyperkalemia; G60.8 Other hereditary and idiopathic neuropathies; I10 Essential (primary) hypertension; K31.84 Gastroparesis; L97.519 Non-pressure chronic ulcer of other part of right foot with unspecified severity; T36.8X5A Adverse effect of other systemic antibiotics, initial encounter; Z79.4 Long term (current) use of insulin; Z87.891 Personal history of nicotine dependence; D50.9 Iron deficiency anemia, unspecified; R00.0 Tachycardia, unspecified; Z88.8 Allergy status to other drugs, medicaments and biological substances
CPT/HCPCS: 36415; 36573; 71045; 74176; 76700; 80048; 80053; 81001; 82010; 82728; 82803; 82947; 82962; 83036; 83690; 83735; 84100; 84145; 85025; 85651; 86140; 87040; 87081; 87324; 93005; 96361; 96374; 96376; 99291; G0378; J0690; J0878; J1335; J1650; J1756; J1815; J2405; J2550; J2997; C1751; C9113; J0360; J2270; J3480; J7030

== ENCOUNTER 2020-09-26 17:28 | Inpatient (IN) | payer MEDICAID ==
[~2020-09-26] VITALS: Ht 188 cm; Wt 79.0 kg
[~2020-09-26 17:28] MED LIST changes: +LISI-167 PO
--- NOTE | 2020-09-26 17:45 | NUR ---
THIS IS A 35 YO M BIB ROOMMATE W/ C/O HIGH BS, WEAKNESS. PER ROOMMATE PT WAS IN [facility] X2 WEEKS AGO. PICC LINE IN PLACE. PT REPORTS DAILY ABX INFUSION FOR RT FOOT DIABETIC ULCER. AT BEDSIDE. 2ND PIV STARTED. 2LNS BOLUS INFUSING. PT HYPOTENSIVE, TACHYCARDIC, OTHER VS WDL. RESP EVEN AND UNLABORED, NADN.
--- NOTE | 2020-09-26 17:56 | NUR ---
RAD AT BEDSIDE.
[2020-09-26 17:57] LABS: BASOPHILS % (AUTO) 1 % (0-1); EOSINOPHILS % (AUTO) 0 % (1-7); LYMPHOCYTES % (AUTO) 15 % (22-44); MEAN CORPUSCULAR HEMOGLOBIN 27.6 pg (27.5-34.5); MEAN CORPUSCULAR HGB CONC 30.5 g/dL (33.2-36.2); MEAN PLATELET VOLUME 9.4 fL (7.4-10.4); MONOCYTES % (AUTO) 4 % (2-9); NEUTROPHILS % (AUTO) 81 % (42-75); PLATELET COUNT 521 x10^3/uL (130-400); RED BLOOD COUNT 4.23 x10^6/uL (4.38-5.82)
[2020-09-26] MEDS ORDERED: SODIUM CHLORIDE 0.9% 1,000ML IVBOLUS ONE ×3 (18:00→19:00)
--- NOTE | 2020-09-26 18:00 | NUR ---
LAB AT BEDSIDE.
[2020-09-26 18:13] LABS: ALANINE AMINOTRANSFERASE 29 U/L (12-78); ALBUMIN 2.5 g/dL (3.4-5.0); CALCIUM 10.6 mg/dL (8.5-10.1); CREATININE 1.91 mg/dL (0.7-1.3)
[2020-09-26 18:14] LABS: PH, VENOUS 7.239 pH (7.320-7.420)
[2020-09-26 18:15] LABS: ALKALINE PHOSPHATASE 228 U/L (45-117); BILIRUBIN,TOTAL 0.9 mg/dL (0.2-1.0); TOTAL PROTEIN 6.3 g/dL (6.4-8.2)
[2020-09-26 18:31] LABS: ANION GAP 32 mmol/L (5-15); CHLORIDE 84 mmol/L (98-107)
[2020-09-26 18:44] LABS: ANISOCYTOSIS 1+; HYPOCHROMIA 1+; POLYCHROMASIA 1+
[2020-09-26 18:45] LABS: <PLATELET ESTIMATE> INCREASED; <PLT MORPHOLOGY> NORMAL PLT MORPH
[2020-09-26 18:53] LABS: ACETONE, SERUM Large (80mg/dL) (Negative)
--- NOTE | 2020-09-26 18:53 | NUR ---
JOHNATHON KRISHNAMURTHY ROOMMATE [phone] OK TO CALL W/ UPDATES AND QUESTIONS
--- NOTE | 2020-09-26 18:55 | NUR ---
Report received from GEORGIANA Altman. This RN to assume care.
[2020-09-26] MEDS ORDERED: ONDANSETRON 2MG/ML, 2ML ONE ×2 (18:56→18:59)
--- NOTE | 2020-09-26 18:59 | NUR ---
REPORT TO JADEN STONER. PT VOMITING, PT HYPOTENSIVE S/P 3L NS BOLUS, ERP UPDATED. CONNECTED TO ALL MONITORING, SIDE RAILS UPX2, CALL LIGHT IN REACH.
[2020-09-26] MEDS ORDERED: ONDANSETRON 2MG/ML, 2ML IVPush ONE (19:00)
--- NOTE | 2020-09-26 19:00 | NUR ---
Patient vomiting. Admin meds per may. Initiated fourth L RADHA.
--- NOTE | 2020-09-26 19:10 | NUR ---
FS continuing to read "hi."
--- NOTE | 2020-09-26 19:20 | NUR ---
Initiated insulin infusion.
[2020-09-26] MEDS ORDERED: REGULAR INSULIN 100 UNITS in SODIUM CHLORIDE 0.9% 99 ML IV PRN ×2 (19:30→20:30)
[2020-09-26] MEDS ORDERED: NOREPINEPHRINE 8 MG in SODIUM CHLORIDE 0.9% 242 ML IV PRN (19:30)
--- NOTE | 2020-09-26 20:23 | NUR ---
FS reads "HI"
[2020-09-26] MEDS ORDERED: ACETAMINOPHEN 325 MG TABLET PO PRN (20:30)
[2020-09-26] MEDS ORDERED: DOCUSATE 100 MG CAPSULE PO PRN (20:30)
[2020-09-26] MEDS ORDERED: SODIUM CHLORIDE 0.9% 1,000 ML IV SCH (20:30)
[2020-09-26] MEDS ORDERED: PHARMACY MAY ADJ FOR RENAL FX MC PRN (20:30)
[2020-09-26] MEDS ORDERED: ONDANSETRON 2MG/ML, 2ML IV PRN (20:30)
--- NOTE | 2020-09-26 21:10 | NUR ---
Report given to GEORGIANA Jenkins. Patient to be transferred to room 551-2.
[2020-09-26 21:38] LABS: HCT (SEDRATE) 34.3 % (39.2-51.8)
[2020-09-26] MEDS: D5%-0.45NACL+KCL 20MEQ 1,000 ML IV SCH (21:43)
[2020-09-26] MEDS ORDERED: FAMOTIDINE 20 MG/2 ML IVPush SCH (21:43)
[2020-09-26 21:46] LABS: ANION GAP 28 mmol/L (5-15); C-REACTIVE PROTEIN, QUANT 0.18 mg/dL (0.02-0.49); CALCIUM 8.9 mg/dL (8.5-10.1); CHLORIDE 95 mmol/L (98-107)
[2020-09-26 21:52] LABS: CREATININE 1.91 mg/dL (0.7-1.3)
[2020-09-26] MEDS: ERTAPENEM 1 GM in SODIUM CHLORIDE 0.9% 50 ML IV SCH (21:57)
[2020-09-26] MEDS ORDERED: LACTATED RINGERS 1,000 ML IV SCH (22:30)
[2020-09-26 22:51] LABS: MICROSCOPIC AUTO
[2020-09-27] MEDS ORDERED: PROMETHAZINE 25 MG/ML, 1ML ONE (00:16)
[2020-09-27] MEDS ORDERED: PROMETHAZINE 25 MG/ML, 1ML IM PRN (00:30)
[2020-09-27 01:00] LABS: ANION GAP 17 mmol/L (5-15); CALCIUM 9.2 mg/dL (8.5-10.1); CHLORIDE 106 mmol/L (98-107); CREATININE 1.92 mg/dL (0.7-1.3)
[2020-09-27] MEDS ORDERED: METOCLOPRAMIDE 5 MG/ML, 2ML IVPush PRN (02:00)
[2020-09-27] MEDS: D5%-0.45NACL+KCL 20MEQ 1,000 ML IV SCH (02:01)
[2020-09-27] MEDS ORDERED: LORazepam 2 MG/ML, 1ML IVPush ONE (04:00)
[2020-09-27 04:58] LABS: ANION GAP 4 mmol/L (5-15); CHLORIDE 109 mmol/L (98-107)
[2020-09-27 05:00] LABS: CREATININE 1.54 mg/dL (0.7-1.3)
[2020-09-27] MEDS: POTASSIUM CHLORIDE 20 MEQ TAB.ER.PRT PO ONE ×2 (07:00→09:40)
[2020-09-27] MEDS: METOCLOPRAMIDE 10MG TABLET PO SCH ×6 (07:00→21:01)
[2020-09-27] MEDS: INSULIN LISPRO 100 UNITS/ML, PEN SQ-INSULIN SCH ×4 (07:39→20:42)
[2020-09-27] MEDS: INSULIN GLARGINE 100 UNITS/ML, PEN SQ-INSULIN SCH ×2 (07:40→20:00)
[2020-09-27] MEDS: SODIUM CHLORIDE 0.9% 1,000 ML IV SCH ×2 (07:40→17:22)
[2020-09-27 08:44] LABS: ANION GAP 9 mmol/L (5-15); CHLORIDE 106 mmol/L (98-107); CREATININE 1.43 mg/dL (0.7-1.3)
[2020-09-27] MEDS ORDERED: LABETALOL 5MG/ML, 20ML IVPush PRN (09:30)
[2020-09-27 16:08] VITALS: BP 150/94
[2020-09-27 18:51] VITALS: BP 123/76
[2020-09-27] MEDS: ERTAPENEM 1 GM in SODIUM CHLORIDE 0.9% 50 ML IV SCH (22:03)
[2020-09-27] MEDS ORDERED: OXYcodone IR 5MG TABLET PO PRN (22:30)
[2020-09-27] MEDS ORDERED: DIPHENOXYLATE/ATROPINE TABLET PO PRN (22:30)
[2020-09-28 00:35] VITALS: BP 130/80
[2020-09-28] MEDS: SODIUM CHLORIDE 0.9% 1,000 ML IV SCH (03:00)
[2020-09-28] MEDS: INSULIN LISPRO 100 UNITS/ML, PEN SQ-INSULIN SCH ×2 (07:00→12:42)
[2020-09-28 07:50] VITALS: BP 142/95
[2020-09-28] MEDS: INSULIN GLARGINE 100 UNITS/ML, PEN SQ-INSULIN SCH (07:51)
[2020-09-28] MEDS: METOCLOPRAMIDE 10MG TABLET PO SCH ×2 (07:51→12:42)
[2020-09-28 12:40] VITALS: BP 137/87
== END 2020-09-28 13:18 | disposition home or self-care (01) | DRG 637 ==
LOC: ED 17:58 → EDIP 19:21 → CCU 21:36 → 4NE 09-27 15:52 → DCLOUNGE 09-28 13:16
PROVIDERS: ADMIT Family Medicine; ATTEND Hospitalist
DX: E10.10 Type 1 diabetes mellitus with ketoacidosis without coma (principal); G93.41 Metabolic encephalopathy; N17.0 Acute kidney failure with tubular necrosis; M86.9 Osteomyelitis, unspecified; D50.9 Iron deficiency anemia, unspecified; D72.828 Other elevated white blood cell count; E10.43 Type 1 diabetes mellitus with diabetic autonomic (poly)neuropathy; E10.621 Type 1 diabetes mellitus with foot ulcer; E10.69 Type 1 diabetes mellitus with other specified complication; E86.0 Dehydration; K21.9 Gastro-esophageal reflux disease without esophagitis; K31.84 Gastroparesis; L97.519 Non-pressure chronic ulcer of other part of right foot with unspecified severity; E87.5 Hyperkalemia; E83.52 Hypercalcemia; R00.0 Tachycardia, unspecified; Z79.4 Long term (current) use of insulin; Z86.14 Personal history of Methicillin resistant Staphylococcus aureus infection
CPT/HCPCS: 36415; 71045; 80048; 80053; 81001; 82010; 82330; 82803; 82962; 83036; 83690; 83735; 84100; 85025; 85651; 86140; 87040; 87081; 93005; 96361; 96374; 96375; G0378; J1335; J1815; J2405; J2550; J2060; J2765; J3480; J7030; J7120; Q0181